=== PATIENT | female | born 1940 | race Caucasian/White ===

== ENCOUNTER 2017-09-05 13:02 | Emergency (ER) | payer OTHER ==
[~2017-09-05] VITALS: Ht 152.4 cm; Wt 68.2 kg
[~2017-09-05 13:02] MED LIST: A20IH1 IH; ACET-2902 PO; ADV500 IH; ALBU8HFA4 IH; AMLO-511 PO; ASPI-1182 PO; ATOR20TA86 PO; AUD NEB; BISA10S PR; CEFO1I IV; DICL2100G TP; DSS100 PO; FLUT16H NASAL; GUAIFCF5L PO; HEPA500018 SQ; INSNOV SQ; IPRNEB NEB; MAGOX PO; METF500T4 PO; MOM30 PO; MULT-1192 PO; NITR.4 SL; OMEP20 PO; ONDA4 IVP; PERCT PO; UMEC62.5 IH
[2017-09-05] MEDS ORDERED: KETOROLAC TROMETHAMINE 30 MG/ML VIAL IVP ONE (13:15)
[2017-09-05] MEDS ORDERED: SODIUM CHLORIDE 0.9% 1,000 ML IV ONE (13:15)
[2017-09-05] MEDS ORDERED: UMEC62.5 IH (13:19)
[2017-09-05] MEDS ORDERED: AMLO-511 PO (13:19)
[2017-09-05] MEDS ORDERED: ALBU8HFA4 IH (13:19)
[2017-09-05] MEDS ORDERED: FLUT16H NASAL (13:19)
[2017-09-05] MEDS ORDERED: OMEP20 PO (13:19)
[2017-09-05] MEDS ORDERED: ATOR20TA86 PO ×2 (13:19)
[2017-09-05] MEDS ORDERED: ADV500 IH (13:19)
[2017-09-05] MEDS ORDERED: METF500T4 PO (13:19)
[2017-09-05] MEDS ORDERED: ASPI-989 PO (13:19)
[2017-09-05] MEDS ORDERED: LACT30L PO (13:19)
[2017-09-05] MEDS ORDERED: AUD NEB (13:19)
[2017-09-05 13:23] LABS: GLUCOSE,POINT OF CARE 112 MG/DL (70-110)
[2017-09-05 13:54] LABS: BASOPHILS % (AUTO) 0.6 % (0.0-2.0); EOSINOPHILS % (AUTO) 1.6 % (1.0-6.0); HEMATOCRIT 33.3 % (36-46); HEMOGLOBIN 10.9 g/dL (12.0-16.0); LYMPHOCYTES # (AUTO) 1.1 K/uL (1.0-4.8); LYMPHOCYTES % (AUTO) 13.1 % (22.0-44.0); MEAN CORPUSCULAR HEMOGLOBIN 28.6 pg (26.0-34.0); MEAN CORPUSCULAR HGB CONC 32.8 G/dL (31.0-37.0); MEAN CORPUSCULAR VOLUME 87 fL (80-100); MONOCYTES # (AUTO) 0.7 K/uL (0.1-1.0); MONOCYTES % (AUTO) 7.7 % (2.0-9.0); NEUTROPHILS # (AUTO) 6.7 K/uL (1.8-7.7); PLATELET COUNT (AUTO) 266 K/uL (150-450); RED BLOOD CELL COUNT(AUTO) 3.81 MIL/uL (4.00-5.20); RED CELL DISTRIBUTION WIDTH 14.6 % (11.5-14.5); WHITE BLOOD COUNT (AUTO) 8.7 K/uL (4.5-11.0)
[2017-09-05 14:07] LABS: CALCIUM, TOTAL 8.9 mg/dL (8.8-10.5); CREATININE 1.16 mg/dL (0.60-1.30); POTASSIUM 4.6 mmol/L (3.5-5.1)
[2017-09-05 14:12] LABS: ALBUMIN 3.8 g/dL (3.4-5.0); BILIRUBIN,TOTAL 0.7 mg/dL (0.1-1.0); TOTAL PROTEIN, SERUM 7.3 g/dL (6.4-8.2)
[2017-09-05 14:41] LABS: APPEARANCE,URINE CLOUDY (CLEAR); GLUCOSE, URINE (UA) NEGATIVE (NEGATIVE); KETONES,URINE NEGATIVE (NEGATIVE); LEUKOCYTE ESTERASE ,URINE SMALL (NEGATIVE); OCCULT BLOOD,URINE NEGATIVE (NEGATIVE); PH,URINE 5.5 (5.0-8.0); PROTEIN,URINE NEGATIVE (NEGATIVE)
[2017-09-05 14:43] LABS: ADD UA MICROSCOPIC YES
[2017-09-05 14:47] LABS: RBC,URINE 0-2 /HPF (0-2)
[2017-09-05 14:48] LABS: SQUAMOUS EPITHELIAL CELL,UR Many /LPF (None Seen)
[2017-09-05] MEDS ORDERED: CefTRIAXone 1 GM/DEXTROSE 50 ML IV ONE (15:00)
[2017-09-05 15:45] VITALS: BP 137/51
== END 2017-09-05 16:26 | disposition home or self-care (01) ==
LOC: EMS 13:05
DX: S00.03XA Contusion of scalp, initial encounter (principal); S13.9XXA Sprain of joints and ligaments of unspecified parts of neck, initial encounter; S40.021A Contusion of right upper arm, initial encounter; S80.811A Abrasion, right lower leg, initial encounter; R42 Dizziness and giddiness; M19.90 Unspecified osteoarthritis, unspecified site; J44.9 Chronic obstructive pulmonary disease, unspecified; E11.9 Type 2 diabetes mellitus without complications; I10 Essential (primary) hypertension; E05.90 Thyrotoxicosis, unspecified without thyrotoxic crisis or storm; K21.9 Gastro-esophageal reflux disease without esophagitis; W06.XXXA Fall from bed, initial encounter; Y93.89 Activity, other specified; Y92.009 Unspecified place in unspecified non-institutional (private) residence as the place of occurrence of the external cause; Y99.8 Other external cause status
CPT/HCPCS: 36415; 70450; 72125; 73080; 80053; 81001; 82962; 84484; 85025; 87077; 87086; 87186; 93005; 96361; 96365; 96375; 99285; J0696; J1885; J7030

== ENCOUNTER 2018-03-02 12:10 | Inpatient (IN) | payer OTHER ==
[~2018-03-02] VITALS: Ht 149.9 cm; Wt 63.0 kg
[~2018-03-02 12:10] MED LIST changes: -A20IH1 IH; -BISA10S PR; -CEFO1I IV; -DICL2100G TP; -DSS100 PO; -FLUT16H NASAL; -GUAIFCF5L PO; -HEPA500018 SQ; -INSNOV SQ; -IPRNEB NEB; -MAGOX PO; -MOM30 PO; -NITR.4 SL; -ONDA4 IVP; -PERCT PO
[2018-03-02 12:23] LABS: GLUCOSE,POINT OF CARE 139 MG/DL (70-110)
[2018-03-02] MEDS ORDERED: ASPIRIN 81 MG CHEWABLE TABLET PO ONE (12:30)
[2018-03-02] MEDS ORDERED: ALBUTEROL SULFATE 5 MG/ML 20 ML NEB SOLN [BULK] NEB ONE (12:30)
[2018-03-02] MEDS ORDERED: MethylPREDNISolone SOD SUCC 125 MG/2 ML VIAL IVP ONE (12:30)
[2018-03-02] MEDS ORDERED: IPRATROPIUM BROMIDE 0.5 MG/2.5 ML NEB SOLUTION NEB ONE (12:30)
[2018-03-02 12:47] LABS: BASOPHILS % (AUTO) 0.2 % (0.0-2.0); EOSINOPHILS % (AUTO) 0.1 % (1.0-6.0); HEMATOCRIT 35.9 % (36-46); HEMOGLOBIN 11.8 g/dL (12.0-16.0); LYMPHOCYTES # (AUTO) 0.3 K/uL (1.0-4.8); LYMPHOCYTES % (AUTO) 3.3 % (22.0-44.0); MEAN CORPUSCULAR HEMOGLOBIN 29.4 pg (26.0-34.0); MEAN CORPUSCULAR VOLUME 89 fL (80-100); MONOCYTES # (AUTO) 0.1 K/uL (0.1-1.0); MONOCYTES % (AUTO) 1.3 % (2.0-9.0); NEUTROPHILS # (AUTO) 9.9 K/uL (1.8-7.7); PLATELET COUNT (AUTO) 355 K/uL (150-450); RED BLOOD CELL COUNT(AUTO) 4.03 MIL/uL (4.00-5.20); RED CELL DISTRIBUTION WIDTH 15.5 % (11.5-14.5)
[2018-03-02 12:48] LABS: NEUTROPHILS % (AUTO) 95.1 % (40.0-70.0)
[2018-03-02 13:03] LABS: ANION GAP 7 mmol/L (8-16); CALCIUM, TOTAL 9.2 mg/dL (8.8-10.5); CARBON DIOXIDE 29 mmol/L (22-29); CHLORIDE 102 mmol/L (98-107); CREATININE 1.46 mg/dL (0.60-1.30); GLOMERULAR FILTR. RATE CALC 35 mL/min (>60); GLUCOSE,RANDOM 129 mg/dL (70-110); POTASSIUM 5.5 mmol/L (3.5-5.1); SODIUM SERUM 138 mmol/L (136-145); UREA NITROGEN, BLOOD 37 mg/dL (7-18)
[2018-03-02 13:05] LABS: B-TYPE NATRIURETIC PEPTIDE 48 pg/mL (0-100)
[2018-03-02 13:07] LABS: ALANINE AMINOTRANSFERASE 29 U/L (12-78); ALKALINE PHOSPHATASE 33 U/L (46-116); ASPARTATE AMINOTRANSFERASE 21 U/L (15-37); BILIRUBIN,TOTAL 0.9 mg/dL (0.1-1.0); CREATINE KINASE, TOTAL 46 U/L (26-192); TOTAL PROTEIN, SERUM 6.6 g/dL (6.4-8.2)
[2018-03-02] MEDS ORDERED: ACETAMINOPHEN 325 MG TABLET PO PRN (14:00)
[2018-03-02] MEDS ORDERED: ONDANSETRON HCL 4 MG/2 ML VIAL IVP PRN (14:00)
[2018-03-02] MEDS ORDERED: MAGNESIUM HYDROXIDE SUSPENSION 30 ML UDCUP PO PRN (14:00)
[2018-03-02] MEDS ORDERED: DEXTROSE 50%-WATER 25 GM/50 ML SYRINGE IVP PRN (14:00)
[2018-03-02] MEDS ORDERED: ALBUTEROL SULFATE 2.5 MG/0.5 ML NEB SOLUTION NEB PRN (14:00)
[2018-03-02] MEDS ORDERED: IPRATROPIUM BROMIDE 0.5 MG/2.5 ML NEB SOLUTION NEB PRN (14:00)
[2018-03-02] MEDS ORDERED: ALBUTEROL SULFATE 2.5 MG/0.5 ML NEB SOLUTION NEB SCH (15:00)
[2018-03-02] MEDS ORDERED: IPRATROPIUM BROMIDE 0.5 MG/2.5 ML NEB SOLUTION NEB SCH (15:00)
[2018-03-02] MEDS: HEPARIN SODIUM,PORCINE 5,000 UNITS/ML VIAL SQ SCH ×2 (15:09→22:09)
[2018-03-02] MEDS: ACETAMINOPHEN 325 MG TABLET PO PRN ×2 (15:09→22:09)
[2018-03-02 15:33] LABS: GLUCOSE,POINT OF CARE 242 MG/DL (70-110)
[2018-03-02] MEDS: MONTELUKAST SODIUM 10 MG TABLET PO SCH (16:18)
[2018-03-02] MEDS: AmLODIPine BESYLATE 5 MG TABLET PO SCH (16:18)
[2018-03-02] MEDS: MULTIVITAMINS WITH MINERALS, THERAPEUTIC TABLET PO SCH (16:18)
[2018-03-02 17:43] VITALS: BP 128/43
[2018-03-02] MEDS ORDERED: PRED10 PO (17:49)
[2018-03-02] MEDS ORDERED: LACT30L PO (17:49)
[2018-03-02] MEDS ORDERED: SULF1TAB3 PO (17:49)
[2018-03-02] MEDS ORDERED: PRED20 PO (17:53)
[2018-03-02] MEDS ORDERED: ASPI-891 PO (17:53)
[2018-03-02] MEDS: MethylPREDNISolone SOD SUCC 125 MG/2 ML VIAL IVP SCH ×2 (17:56→22:09)
[2018-03-02] MEDS: INSULIN LISPRO 100 UNITS/ML SQ PRN ×2 (17:57→20:30)
[2018-03-02 18:37] LABS: GLUCOMETER DEV NAME(LOC) 5N 2S; GLUCOSE,POINT OF CARE 253 MG/DL (70-110)
[2018-03-02 19:47] VITALS: BP 132/48
[2018-03-02] MEDS: DOCUSATE SODIUM 100 MG CAPSULE PO SCH (20:27)
[2018-03-02 23:55] VITALS: BP 128/76
[2018-03-03] MEDS: MethylPREDNISolone SOD SUCC 125 MG/2 ML VIAL IVP SCH ×2 (05:05→11:59)
[2018-03-03] MEDS: INSULIN LISPRO 100 UNITS/ML SQ PRN ×4 (05:11→21:54)
[2018-03-03 05:14] VITALS: BP 142/54
[2018-03-03 07:54] VITALS: BP 160/61
[2018-03-03] MEDS: AmLODIPine BESYLATE 5 MG TABLET PO SCH (08:34)
[2018-03-03] MEDS: MULTIVITAMINS WITH MINERALS, THERAPEUTIC TABLET PO SCH (08:34)
[2018-03-03] MEDS: ASPIRIN 81 MG CHEWABLE TABLET PO SCH (08:34)
[2018-03-03] MEDS: PANTOPRAZOLE SODIUM 40 MG DR TABLET PO SCH (08:34)
[2018-03-03] MEDS: MONTELUKAST SODIUM 10 MG TABLET PO SCH (08:34)
[2018-03-03] MEDS: DOCUSATE SODIUM 100 MG CAPSULE PO SCH ×2 (08:34→20:27)
[2018-03-03] MEDS: ATORVASTATIN CALCIUM 20 MG TABLET PO SCH (08:34)
[2018-03-03] MEDS: HEPARIN SODIUM,PORCINE 5,000 UNITS/ML VIAL SQ SCH ×3 (08:35→23:31)
[2018-03-03] MEDS ORDERED: ATORVASTATIN CALCIUM 20 MG TABLET PO SCH (09:00)
[2018-03-03 11:25] VITALS: BP 150/73
[2018-03-03] MEDS: CHOLECALCIFEROL (VIT D3) 1,000 UNITS TABLET PO SCH (14:36)
[2018-03-03] MEDS: PredniSONE 20 MG TABLET PO SCH (14:36)
[2018-03-03 14:37] LABS: BASOPHILS % (AUTO) 0.1 % (0.0-2.0); EOSINOPHILS % (AUTO) 0 % (1.0-6.0); HEMATOCRIT 35.4 % (36-46); HEMOGLOBIN 11.3 g/dL (12.0-16.0); LYMPHOCYTES # (AUTO) 0.3 K/uL (1.0-4.8); LYMPHOCYTES % (AUTO) 1.8 % (22.0-44.0); MEAN CORPUSCULAR HEMOGLOBIN 28.8 pg (26.0-34.0); MEAN CORPUSCULAR VOLUME 90 fL (80-100); MONOCYTES # (AUTO) 0.3 K/uL (0.1-1.0); MONOCYTES % (AUTO) 1.5 % (2.0-9.0); NEUTROPHILS # (AUTO) 18.6 K/uL (1.8-7.7); PLATELET COUNT (AUTO) 338 K/uL (150-450); RED BLOOD CELL COUNT(AUTO) 3.94 MIL/uL (4.00-5.20); RED CELL DISTRIBUTION WIDTH 15.6 % (11.5-14.5)
[2018-03-03 14:40] LABS: NEUTROPHILS % (AUTO) 96.6 % (40.0-70.0)
[2018-03-03 14:43] LABS: CREATININE 1.39 mg/dL (0.60-1.30); POTASSIUM 5.4 mmol/L (3.5-5.1)
[2018-03-03 15:11] VITALS: BP 140/74
[2018-03-03 18:40] VITALS: BP 144/57
[2018-03-03] MEDS ORDERED: 0.9% SODIUM CHLORIDE 5 ML NEB SOLUTION NEB ONE (21:03)
[2018-03-03 23:55] VITALS: BP 134/52
[2018-03-04 01:18] LABS: GLUCOMETER DEV NAME(LOC) 6N 2D; GLUCOSE,POINT OF CARE 219 MG/DL (70-110)
[2018-03-04 04:31] VITALS: BP 150/63
[2018-03-04 06:25] LABS: CREATININE 1.01 mg/dL (0.60-1.30); POTASSIUM 4.8 mmol/L (3.5-5.1)
[2018-03-04 07:36] VITALS: BP 153/70
[2018-03-04] MEDS: HEPARIN SODIUM,PORCINE 5,000 UNITS/ML VIAL SQ SCH (08:26)
[2018-03-04] MEDS: MONTELUKAST SODIUM 10 MG TABLET PO SCH (08:27)
[2018-03-04] MEDS: ATORVASTATIN CALCIUM 20 MG TABLET PO SCH (08:28)
[2018-03-04] MEDS: AmLODIPine BESYLATE 5 MG TABLET PO SCH (08:28)
[2018-03-04] MEDS: CHOLECALCIFEROL (VIT D3) 1,000 UNITS TABLET PO SCH (08:28)
[2018-03-04] MEDS: MULTIVITAMINS WITH MINERALS, THERAPEUTIC TABLET PO SCH (08:28)
[2018-03-04] MEDS: PANTOPRAZOLE SODIUM 40 MG DR TABLET PO SCH (08:29)
[2018-03-04] MEDS: ASPIRIN 81 MG CHEWABLE TABLET PO SCH (08:29)
[2018-03-04] MEDS: PredniSONE 20 MG TABLET PO SCH (08:29)
[2018-03-04] MEDS: DOCUSATE SODIUM 100 MG CAPSULE PO SCH (08:57)
[2018-03-04 11:43] LABS: GLUCOMETER DEV NAME(LOC) 6N 1E; GLUCOSE,POINT OF CARE 134 MG/DL (70-110)
[2018-03-04] MEDS: INSULIN LISPRO 100 UNITS/ML SQ PRN (11:59)
[2018-03-04 12:14] VITALS: BP 153/71
[2018-03-04 12:43] LABS: GLUCOMETER DEV NAME(LOC) 5N 2S; GLUCOSE,POINT OF CARE 206 MG/DL (70-110)
[2018-03-04 12:43] LABS: GLUCOMETER DEV NAME(LOC) 5N 2S; GLUCOSE,POINT OF CARE 108 MG/DL (70-110)
[2018-03-04 12:43] LABS: GLUCOMETER DEV NAME(LOC) 5N 2S; GLUCOSE,POINT OF CARE 161 MG/DL (70-110)
[2018-03-04 12:43] LABS: GLUCOMETER DEV NAME(LOC) 5N 2S; GLUCOSE,POINT OF CARE 169 MG/DL (70-110)
[2018-03-04 14:13] LABS: GLUCOMETER DEV NAME(LOC) 6N 2D; GLUCOSE,POINT OF CARE 150 MG/DL (70-110)
== END 2018-03-04 14:00 | disposition home or self-care (01) | DRG 189 ==
LOC: EMS 12:11 → 5N 17:21 → EMS 17:32 → 6N 03-03 18:25
PROVIDERS: ADMIT Internal Medicine; ATTEND Internal Medicine
DX: J96.21 Acute and chronic respiratory failure with hypoxia (principal); E11.51 Type 2 diabetes mellitus with diabetic peripheral angiopathy without gangrene; Z99.81 Dependence on supplemental oxygen; J44.1 Chronic obstructive pulmonary disease with (acute) exacerbation; E11.9 Type 2 diabetes mellitus without complications; E05.90 Thyrotoxicosis, unspecified without thyrotoxic crisis or storm; E55.9 Vitamin D deficiency, unspecified; M19.90 Unspecified osteoarthritis, unspecified site; I10 Essential (primary) hypertension; F41.1 Generalized anxiety disorder; K21.9 Gastro-esophageal reflux disease without esophagitis; Z82.49 Family history of ischemic heart disease and other diseases of the circulatory system; Z87.891 Personal history of nicotine dependence; Z90.710 Acquired absence of both cervix and uterus; Z88.0 Allergy status to penicillin; Z79.899 Other long term (current) drug therapy
CPT/HCPCS: 82306; 82962; 93005; 94640; 94644; J1644; J2930

== ENCOUNTER 2018-04-13 20:38 | Inpatient (IN) | payer OTHER ==
[~2018-04-13] VITALS: Ht 152.4 cm; Wt 68.2 kg
[~2018-04-13 20:38] MED LIST changes: -ASPI-1182 PO; +ASPI-891 PO; -METF500T4 PO; +METF500T6 PO; +PRED10 PO; +PRED20 PO; +PRED5 PO; -UMEC62.5 IH
[2018-04-13 21:02] LABS: GLUCOSE,POINT OF CARE 114 MG/DL (70-110)
[2018-04-13 21:27] LABS: BASOPHILS % (AUTO) 1.3 % (0.0-2.0); HEMOGLOBIN 10.7 g/dL (12.0-16.0); LYMPHOCYTES # (AUTO) 1.3 K/uL (1.0-4.8); LYMPHOCYTES % (AUTO) 21.8 % (22.0-44.0); MEAN CORPUSCULAR HEMOGLOBIN 29.3 pg (26.0-34.0); MEAN CORPUSCULAR HGB CONC 33.4 G/dL (31.0-37.0); MEAN CORPUSCULAR VOLUME 88 fL (80-100); MONOCYTES # (AUTO) 0.6 K/uL (0.1-1.0); NEUTROPHILS # (AUTO) 3.7 K/uL (1.8-7.7); NEUTROPHILS % (AUTO) 63.9 % (40.0-70.0); PLATELET COUNT (AUTO) 273 K/uL (150-450); RED BLOOD CELL COUNT(AUTO) 3.64 MIL/uL (4.00-5.20); RED CELL DISTRIBUTION WIDTH 14.5 % (11.5-14.5)
[2018-04-13 21:37] LABS: INR 0.9 (0.9-1.1); PROTHROMBIN TIME 9.8 SEC (9.4-11.6)
[2018-04-13 21:38] LABS: ANION GAP 6 mmol/L (8-16); CALCIUM, TOTAL 9.1 mg/dL (8.8-10.5); CARBON DIOXIDE 30 mmol/L (22-29); CHLORIDE 103 mmol/L (98-107); CREATININE 0.83 mg/dL (0.60-1.30); GLOMERULAR FILTR. RATE CALC > 60 mL/min (>60); GLUCOSE,RANDOM 119 mg/dL (70-110); POTASSIUM 4.7 mmol/L (3.5-5.1); SODIUM SERUM 139 mmol/L (136-145); UREA NITROGEN, BLOOD 21 mg/dL (7-18)
[2018-04-13 21:56] LABS: B-TYPE NATRIURETIC PEPTIDE 58 pg/mL (0-100)
[2018-04-13 22:02] LABS: ALANINE AMINOTRANSFERASE 32 U/L (12-78); ALBUMIN 3.4 g/dL (3.4-5.0); ALKALINE PHOSPHATASE 45 U/L (46-116); ASPARTATE AMINOTRANSFERASE 26 U/L (15-37); BILIRUBIN,TOTAL 0.8 mg/dL (0.1-1.0); CREATINE KINASE MB 1.6 ng/mL (0-5); CREATINE KINASE, TOTAL 86 U/L (26-192); TOTAL PROTEIN, SERUM 6.5 g/dL (6.4-8.2)
[2018-04-13] MEDS ORDERED: MethylPREDNISolone SOD SUCC 125 MG/2 ML VIAL IVP ONE (22:30)
[2018-04-13] MEDS ORDERED: NITROGLYCERIN 2% (1 GM=INCH) PACKET TP ONE (22:30)
[2018-04-13] MEDS ORDERED: ASPIRIN 325 MG TABLET PO ONE (22:30)
[2018-04-13] MEDS ORDERED: IPRATROPIUM BROMIDE 0.5 MG/2.5 ML NEB SOLUTION NEB ONE (22:30)
[2018-04-13] MEDS ORDERED: ALBUTEROL SULFATE 2.5 MG/0.5 ML NEB SOLUTION NEB ONE (22:30)
[2018-04-13] MEDS ORDERED: ALBUTEROL SULFATE 2.5 MG/0.5 ML NEB SOLUTION NEB PRN (23:00)
[2018-04-13] MEDS ORDERED: IPRATROPIUM BROMIDE 0.5 MG/2.5 ML NEB SOLUTION NEB SCH (23:00)
[2018-04-13] MEDS ORDERED: 0.9% SODIUM CHLORIDE 10 ML SYRINGE IVP PRN (23:00)
[2018-04-13] MEDS ORDERED: ACETAMINOPHEN 325 MG TABLET PO PRN (23:00)
[2018-04-13] MEDS ORDERED: IPRATROPIUM BROMIDE 0.5 MG/2.5 ML NEB SOLUTION NEB PRN (23:00)
[2018-04-13] MEDS ORDERED: ALBUTEROL SULFATE 2.5 MG/0.5 ML NEB SOLUTION NEB SCH (23:00)
[2018-04-13] MEDS ORDERED: ONDANSETRON HCL 4 MG/2 ML VIAL IVP PRN (23:00)
[2018-04-13] MEDS ORDERED: CefTRIAXone SODIUM 1 GM in DEXTROSE 5%-WATER 10 ML IV ONE (23:00)
[2018-04-13] MEDS: OXYGEN THERAPY IH SCH (23:07)
[2018-04-14] VITALS (7 sets, daily range): BP systolic 125–147; BP diastolic 59–93
[2018-04-14] MEDS ORDERED: ZOLPIDEM TARTRATE 5 MG TABLET PO PRN (00:15)
[2018-04-14] MEDS ORDERED: ONDANSETRON HCL 4 MG/2 ML VIAL IVP PRN (00:15)
[2018-04-14] MEDS ORDERED: IPRATROPIUM BROMIDE 0.5 MG/2.5 ML NEB SOLUTION NEB PRN (00:15)
[2018-04-14] MEDS ORDERED: GuaiFENesin/D-METHORPHAN/PHENYLEPH 5 ML LIQUID ORAL.SYG PO PRN (00:15)
[2018-04-14] MEDS ORDERED: BENZOCAINE/MENTHOL LOZENGE MM PRN (00:15)
[2018-04-14] MEDS ORDERED: BISACODYL 10 MG RECTAL RECTAL SUPPOSITORY PR PRN (00:15)
[2018-04-14] MEDS ORDERED: MAGNESIUM HYDROXIDE SUSPENSION 30 ML UDCUP PO PRN (00:15)
[2018-04-14] MEDS ORDERED: ALBUTEROL SULFATE 2.5 MG/0.5 ML NEB SOLUTION NEB PRN (00:15)
[2018-04-14] MEDS ORDERED: SODIUM CHLORIDE 0.9% 250 ML IV ONE (01:11)
[2018-04-14] MEDS: AZITHROMYCIN 500 MG/NS 250 ML IV SCH (02:09)
[2018-04-14] MEDS: ACETAMINOPHEN 325 MG TABLET PO PRN ×2 (02:49→20:13)
[2018-04-14] MEDS: ALBUTEROL SULFATE 2.5 MG/0.5 ML NEB SOLUTION NEB PRN ×2 (05:46→17:29)
[2018-04-14] MEDS: IPRATROPIUM BROMIDE 0.5 MG/2.5 ML NEB SOLUTION NEB PRN ×2 (05:46→17:29)
[2018-04-14] MEDS: HEPARIN SODIUM,PORCINE 5,000 UNITS/ML VIAL SQ SCH ×2 (08:00→20:06)
[2018-04-14] MEDS: PANTOPRAZOLE SODIUM 40 MG DR TABLET PO SCH (08:00)
[2018-04-14] MEDS: MethylPREDNISolone SOD SUCC 125 MG/2 ML VIAL IVP SCH ×4 (08:00→23:38)
[2018-04-14] MEDS: OXYGEN THERAPY IH SCH ×2 (08:00→20:13)
[2018-04-14] MEDS ORDERED: DEXTROSE 50%-WATER 25 GM/50 ML SYRINGE IVP PRN (11:15)
[2018-04-14] MEDS: INSULIN LISPRO 100 UNITS/ML SQ PRN ×3 (12:33→20:11)
[2018-04-14] MEDS: OxyCODONE HCL/ACETAMINOPHEN 5-325 MG TABLET PO PRN (23:39)
[2018-04-15 01:03] LABS: GLUCOMETER DEV NAME(LOC) 5S 1M; GLUCOSE,POINT OF CARE 229 MG/DL (70-110)
[2018-04-15 01:28] LABS: GLUCOMETER DEV NAME(LOC) 5N 2S; GLUCOSE,POINT OF CARE 171 MG/DL (70-110)
[2018-04-15 01:28] LABS: GLUCOMETER DEV NAME(LOC) 5N 2S; GLUCOSE,POINT OF CARE 175 MG/DL (70-110)
[2018-04-15 01:28] LABS: GLUCOMETER DEV NAME(LOC) 5N 2S; GLUCOSE,POINT OF CARE 148 MG/DL (70-110)
[2018-04-15] MEDS: AZITHROMYCIN 500 MG/NS 250 ML IV SCH (02:06)
[2018-04-15 04:28] VITALS: BP 125/57
[2018-04-15] MEDS: INSULIN LISPRO 100 UNITS/ML SQ PRN ×4 (06:19→20:42)
[2018-04-15 06:41] LABS: BASOPHILS % (AUTO) 0.1 % (0.0-2.0); EOSINOPHILS % (AUTO) 0 % (1.0-6.0); HEMATOCRIT 31.2 % (36-46); HEMOGLOBIN 10.9 g/dL (12.0-16.0); LYMPHOCYTES # (AUTO) 0.5 K/uL (1.0-4.8); LYMPHOCYTES % (AUTO) 4.5 % (22.0-44.0); MEAN CORPUSCULAR HEMOGLOBIN 30.2 pg (26.0-34.0); MEAN CORPUSCULAR VOLUME 86 fL (80-100); MONOCYTES # (AUTO) 0.2 K/uL (0.1-1.0); MONOCYTES % (AUTO) 1.7 % (2.0-9.0); NEUTROPHILS # (AUTO) 9.9 K/uL (1.8-7.7); PLATELET COUNT (AUTO) 260 K/uL (150-450); RED BLOOD CELL COUNT(AUTO) 3.61 MIL/uL (4.00-5.20); RED CELL DISTRIBUTION WIDTH 14.2 % (11.5-14.5)
[2018-04-15 06:55] LABS: NEUTROPHILS % (AUTO) 93.7 % (40.0-70.0)
[2018-04-15 07:18] VITALS: BP 145/71
[2018-04-15] MEDS: IPRATROPIUM BROMIDE 0.5 MG/2.5 ML NEB SOLUTION NEB PRN (07:44)
[2018-04-15] MEDS: ALBUTEROL SULFATE 2.5 MG/0.5 ML NEB SOLUTION NEB PRN (07:44)
[2018-04-15] MEDS: OXYGEN THERAPY IH SCH ×2 (07:45→20:17)
[2018-04-15 07:48] LABS: GLUCOMETER DEV NAME(LOC) 5S 1M; GLUCOSE,POINT OF CARE 183 MG/DL (70-110)
[2018-04-15] MEDS: HEPARIN SODIUM,PORCINE 5,000 UNITS/ML VIAL SQ SCH ×2 (08:02→20:41)
[2018-04-15] MEDS: PANTOPRAZOLE SODIUM 40 MG DR TABLET PO SCH (08:03)
[2018-04-15] MEDS: MethylPREDNISolone SOD SUCC 125 MG/2 ML VIAL IVP SCH ×3 (08:03→23:36)
[2018-04-15 08:04] LABS: ALANINE AMINOTRANSFERASE 31 U/L (12-78); ALBUMIN 3.2 g/dL (3.4-5.0); ALKALINE PHOSPHATASE 30 U/L (46-116); ANION GAP 6 mmol/L (8-16); ASPARTATE AMINOTRANSFERASE 19 U/L (15-37); BILIRUBIN,TOTAL 0.5 mg/dL (0.1-1.0); CALCIUM, TOTAL 8.5 mg/dL (8.8-10.5); CARBON DIOXIDE 29 mmol/L (22-29); CHLORIDE 103 mmol/L (98-107); CHOL/HDL RATIO 2.3 (3.9-5.7); CHOLESTEROL 134 mg/dL (131-200); CREATININE 0.78 mg/dL (0.60-1.30); GLOMERULAR FILTR. RATE CALC > 60 mL/min (>60); GLUCOSE,RANDOM 174 mg/dL (70-110); HDL CHOLESTEROL 58 mg/dL (40-60); LDL CHOL (CALC.) 52 mg/dL (0-130); PHOSPHORUS 3.4 mg/dL (2.5-4.9); POTASSIUM 4.2 mmol/L (3.5-5.1); SODIUM SERUM 138 mmol/L (136-145); THYROID STIMULATING HORMONE 0.15 uIU/mL (0.36-3.74); TOTAL PROTEIN, SERUM 6.1 g/dL (6.4-8.2); TRIGLYCERIDES 122 mg/dL (15-150); UREA NITROGEN, BLOOD 20 mg/dL (7-18)
[2018-04-15] MEDS: IPRATROPIUM BROMIDE 0.5 MG/2.5 ML NEB SOLUTION NEB SCH ×3 (11:00→20:17)
[2018-04-15] MEDS: ALBUTEROL SULFATE 2.5 MG/0.5 ML NEB SOLUTION NEB SCH ×3 (11:00→20:17)
[2018-04-15 11:14] VITALS: BP 135/56
[2018-04-15 15:04] VITALS: BP 138/59
[2018-04-15 19:49] VITALS: BP 131/56
[2018-04-15] MEDS: OxyCODONE HCL/ACETAMINOPHEN 5-325 MG TABLET PO PRN (20:41)
[2018-04-15 22:23] LABS: GLUCOMETER DEV NAME(LOC) 5S 2Q; GLUCOSE,POINT OF CARE 349 MG/DL (70-110)
[2018-04-15 22:23] LABS: GLUCOMETER DEV NAME(LOC) 5S 1M; GLUCOSE,POINT OF CARE 183 MG/DL (70-110)
[2018-04-15 22:23] LABS: GLUCOMETER DEV NAME(LOC) 5S 1M; GLUCOSE,POINT OF CARE 196 MG/DL (70-110)
[2018-04-16 00:07] VITALS: BP 142/62
[2018-04-16] MEDS: IPRATROPIUM BROMIDE 0.5 MG/2.5 ML NEB SOLUTION NEB SCH ×3 (02:23→14:16)
[2018-04-16] MEDS: ALBUTEROL SULFATE 2.5 MG/0.5 ML NEB SOLUTION NEB SCH ×3 (02:23→14:16)
[2018-04-16] MEDS: AZITHROMYCIN 500 MG/NS 250 ML IV SCH (02:41)
[2018-04-16 04:27] VITALS: BP 140/66
[2018-04-16] MEDS: INSULIN LISPRO 100 UNITS/ML SQ PRN ×2 (05:31→11:46)
[2018-04-16 07:17] VITALS: BP 144/74
[2018-04-16] MEDS: OXYGEN THERAPY IH SCH (09:12)
[2018-04-16] MEDS: PANTOPRAZOLE SODIUM 40 MG DR TABLET PO SCH (09:18)
[2018-04-16] MEDS: HEPARIN SODIUM,PORCINE 5,000 UNITS/ML VIAL SQ SCH (09:18)
[2018-04-16] MEDS ORDERED: PredniSONE 20 MG TABLET PO ONE ×2 (09:30→15:00)
[2018-04-16 10:13] LABS: GLUCOMETER DEV NAME(LOC) 5S 1M; GLUCOSE,POINT OF CARE 213 MG/DL (70-110)
[2018-04-16 11:42] VITALS: BP 145/77
[2018-04-16 12:08] LABS: GLUCOMETER DEV NAME(LOC) 5S 2Q; GLUCOSE,POINT OF CARE 238 MG/DL (70-110)
[2018-04-16 15:08] VITALS: BP 164/78
[2018-04-16] MEDS: ACETAMINOPHEN 325 MG TABLET PO PRN (15:21)
== END 2018-04-16 16:40 | disposition home or self-care (01) | DRG 192 ==
LOC: EMS 20:39 → 5S 22:58
PROVIDERS: ADMIT Internal Medicine; ATTEND Internal Medicine
DX: J44.1 Chronic obstructive pulmonary disease with (acute) exacerbation (principal); E11.51 Type 2 diabetes mellitus with diabetic peripheral angiopathy without gangrene; E11.65 Type 2 diabetes mellitus with hyperglycemia; E78.5 Hyperlipidemia, unspecified; M19.90 Unspecified osteoarthritis, unspecified site; K21.9 Gastro-esophageal reflux disease without esophagitis; K59.00 Constipation, unspecified; M85.80 Other specified disorders of bone density and structure, unspecified site; I10 Essential (primary) hypertension; Z90.710 Acquired absence of both cervix and uterus; Z90.49 Acquired absence of other specified parts of digestive tract; Z99.81 Dependence on supplemental oxygen; Z88.0 Allergy status to penicillin; Z79.82 Long term (current) use of aspirin; Z79.899 Other long term (current) drug therapy; Z79.52 Long term (current) use of systemic steroids; Z87.891 Personal history of nicotine dependence
CPT/HCPCS: 82306; 83605; 83735; 84100; 84443; 87040; 87081; 93005; 94640; 96374; 99285; J0456; J0696; J1644; J2930; J7050; J7060

== ENCOUNTER 2018-05-27 08:17 | Inpatient (IN) | payer OTHER ==
[~2018-05-27] VITALS: Ht 149.9 cm; Wt 67.5 kg
[~2018-05-27 08:17] MED LIST changes: -PRED10 PO; -PRED20 PO
[2018-05-27 08:39] LABS: GLUCOSE,POINT OF CARE 104 MG/DL (70-110)
[2018-05-27] MEDS ORDERED: ALBUTEROL SULFATE 5 MG/ML 20 ML NEB SOLN [BULK] NEB ONE (09:15)
[2018-05-27] MEDS ORDERED: MORPHINE SULFATE 2 MG/ML SYRINGE IVP ONE (09:15)
[2018-05-27] MEDS ORDERED: IPRATROPIUM BROMIDE 0.5 MG/2.5 ML NEB SOLUTION NEB ONE (09:15)
[2018-05-27] MEDS ORDERED: 0.9% SODIUM CHLORIDE 5 ML NEB SOLUTION NEB ONE (09:21)
[2018-05-27 09:22] LABS: BASOPHILS % (AUTO) 0.6 % (0.0-2.0); EOSINOPHILS % (AUTO) 1.7 % (1.0-6.0); HEMATOCRIT 34.2 % (36-46); HEMOGLOBIN 11.3 g/dL (12.0-16.0); LYMPHOCYTES # (AUTO) 0.9 K/uL (1.0-4.8); LYMPHOCYTES % (AUTO) 9.7 % (22.0-44.0); MEAN CORPUSCULAR HEMOGLOBIN 29.7 pg (26.0-34.0); MEAN CORPUSCULAR HGB CONC 33.1 G/dL (31.0-37.0); MEAN CORPUSCULAR VOLUME 90 fL (80-100); MONOCYTES # (AUTO) 0.7 K/uL (0.1-1.0); MONOCYTES % (AUTO) 7.1 % (2.0-9.0); NEUTROPHILS # (AUTO) 7.8 K/uL (1.8-7.7); NEUTROPHILS % (AUTO) 80.9 % (40.0-70.0); PLATELET COUNT (AUTO) 275 K/uL (150-450); RED BLOOD CELL COUNT(AUTO) 3.82 MIL/uL (4.00-5.20); RED CELL DISTRIBUTION WIDTH 15.1 % (11.5-14.5)
[2018-05-27] MEDS ORDERED: MethylPREDNISolone SOD SUCC 125 MG/2 ML VIAL IVP ONE (09:30)
[2018-05-27 09:33] LABS: INR 0.9 (0.9-1.1); PROTHROMBIN TIME 9.7 SEC (9.4-11.6)
[2018-05-27 09:34] LABS: ANION GAP -1 mmol/L (8-16); CALCIUM, TOTAL 8.9 mg/dL (8.8-10.5); CARBON DIOXIDE 35 mmol/L (22-29); CHLORIDE 103 mmol/L (98-107); CREATININE 0.86 mg/dL (0.60-1.30); GLOMERULAR FILTR. RATE CALC > 60 mL/min (>60); GLUCOSE,RANDOM 104 mg/dL (70-110); POTASSIUM 4.1 mmol/L (3.5-5.1); SODIUM SERUM 137 mmol/L (136-145); UREA NITROGEN, BLOOD 12 mg/dL (7-18)
[2018-05-27 09:40] LABS: ALANINE AMINOTRANSFERASE 26 U/L (12-78); ALBUMIN 3.4 g/dL (3.4-5.0); ALKALINE PHOSPHATASE 47 U/L (46-116); ASPARTATE AMINOTRANSFERASE 23 U/L (15-37); BILIRUBIN,TOTAL 1.5 mg/dL (0.1-1.0); CREATINE KINASE, TOTAL 66 U/L (26-192); TOTAL PROTEIN, SERUM 6.4 g/dL (6.4-8.2)
[2018-05-27 09:44] LABS: B-TYPE NATRIURETIC PEPTIDE 59 pg/mL (0-100)
[2018-05-27] MEDS ORDERED: 0.9% SODIUM CHLORIDE 10 ML SYRINGE IVP PRN (11:15)
[2018-05-27 12:13] VITALS: BP 133/64
[2018-05-27] MEDS: MethylPREDNISolone SOD SUCC 40 MG/ML VIAL IVP SCH ×3 (15:10→23:25)
[2018-05-27 15:15] VITALS: BP 130/55
[2018-05-27] MEDS: IPRATROPIUM BROMIDE 0.5 MG/2.5 ML NEB SOLUTION NEB SCH (15:26)
[2018-05-27] MEDS: ALBUTEROL SULFATE 2.5 MG/0.5 ML NEB SOLUTION NEB SCH (15:26)
[2018-05-27] MEDS: ACETAMINOPHEN 325 MG TABLET PO PRN ×2 (17:42→23:25)
[2018-05-27 19:22] VITALS: BP 142/63
[2018-05-27] MEDS: OXYGEN THERAPY IH SCH (19:52)
[2018-05-27 23:46] VITALS: BP 148/61
[2018-05-28] MEDS: ALBUTEROL SULFATE 2.5 MG/0.5 ML NEB SOLUTION NEB SCH ×4 (00:14→23:08)
[2018-05-28] MEDS: IPRATROPIUM BROMIDE 0.5 MG/2.5 ML NEB SOLUTION NEB SCH ×4 (00:15→23:08)
[2018-05-28 04:41] VITALS: BP 148/70
[2018-05-28] MEDS: MethylPREDNISolone SOD SUCC 40 MG/ML VIAL IVP SCH ×4 (06:05→23:06)
[2018-05-28 06:31] LABS: HEMOGLOBIN 10.6 g/dL (12.0-16.0); MEAN CORPUSCULAR HEMOGLOBIN 29.2 pg (26.0-34.0); MEAN CORPUSCULAR HGB CONC 33.1 G/dL (31.0-37.0); MEAN CORPUSCULAR VOLUME 88 fL (80-100); PLATELET COUNT (AUTO) 251 K/uL (150-450); RED BLOOD CELL COUNT(AUTO) 3.62 MIL/uL (4.00-5.20); RED CELL DISTRIBUTION WIDTH 14.9 % (11.5-14.5)
[2018-05-28 07:10] LABS: ALANINE AMINOTRANSFERASE 25 U/L (12-78); ALBUMIN 3.1 g/dL (3.4-5.0); ALKALINE PHOSPHATASE 43 U/L (46-116); ANION GAP 5 mmol/L (8-16); ASPARTATE AMINOTRANSFERASE 17 U/L (15-37); BILIRUBIN,TOTAL 0.7 mg/dL (0.1-1.0); CALCIUM, TOTAL 8.7 mg/dL (8.8-10.5); CARBON DIOXIDE 31 mmol/L (22-29); CHLORIDE 101 mmol/L (98-107); CREATININE 0.87 mg/dL (0.60-1.30); GLUCOSE,RANDOM 211 mg/dL (70-110); POTASSIUM 4.1 mmol/L (3.5-5.1); SODIUM SERUM 137 mmol/L (136-145); TOTAL PROTEIN, SERUM 6.2 g/dL (6.4-8.2); UREA NITROGEN, BLOOD 20 mg/dL (7-18)
[2018-05-28 07:13] VITALS: BP 147/66
[2018-05-28 07:20] LABS: GLOMERULAR FILTR. RATE CALC > 60 mL/min (>60)
[2018-05-28 07:48] LABS: BAND NEUTROPHILS % (MANUAL) 7 % (0-5); LYMPHOCYTES % (MANUAL) 4 % (22-44); SEGMENTED NEUTROPHILS % 89 % (40-70)
[2018-05-28] MEDS: OXYGEN THERAPY IH SCH ×2 (08:27→23:08)
[2018-05-28 11:16] VITALS: BP 156/69
[2018-05-28 15:42] VITALS: BP 161/77
[2018-05-28] MEDS ORDERED: MAGNESIUM HYDROXIDE SUSPENSION 30 ML UDCUP PO PRN (18:30)
[2018-05-28] MEDS ORDERED: MORPHINE SULFATE 2 MG/ML SYRINGE IVP PRN (18:30)
[2018-05-28] MEDS ORDERED: HYDROCODONE/ACETAMINOPHEN 5-325 MG TABLET PO PRN (18:30)
[2018-05-28] MEDS ORDERED: BISACODYL 10 MG RECTAL RECTAL SUPPOSITORY PR PRN (18:30)
[2018-05-28] MEDS ORDERED: ALBUTEROL SULFATE 2.5 MG/0.5 ML NEB SOLUTION NEB PRN (18:30)
[2018-05-28] MEDS ORDERED: ONDANSETRON HCL 4 MG/2 ML VIAL IVP PRN (18:30)
[2018-05-28] MEDS ORDERED: IPRATROPIUM BROMIDE 0.5 MG/2.5 ML NEB SOLUTION NEB PRN (18:30)
[2018-05-28] MEDS ORDERED: ZOLPIDEM TARTRATE 5 MG TABLET PO PRN (18:30)
[2018-05-28] MEDS: AmLODIPine BESYLATE 5 MG TABLET PO SCH (18:43)
[2018-05-28] MEDS: DOCUSATE SODIUM 100 MG CAPSULE PO SCH (19:35)
[2018-05-28 19:43] VITALS: BP 153/67
[2018-05-28] MEDS: ACETAMINOPHEN 325 MG TABLET PO PRN (23:09)
[2018-05-28] MEDS: HEPARIN SODIUM,PORCINE 5,000 UNITS/ML VIAL SQ SCH (23:27)
[2018-05-29 00:40] VITALS: BP 148/69
[2018-05-29 04:36] VITALS: BP 142/67
[2018-05-29] MEDS: MethylPREDNISolone SOD SUCC 40 MG/ML VIAL IVP SCH ×3 (06:13→17:52)
[2018-05-29 07:40] VITALS: BP 134/69
[2018-05-29] MEDS: HEPARIN SODIUM,PORCINE 5,000 UNITS/ML VIAL SQ SCH ×2 (08:00→16:00)
[2018-05-29] MEDS: OXYGEN THERAPY IH SCH ×2 (08:30→20:37)
[2018-05-29] MEDS: AmLODIPine BESYLATE 5 MG TABLET PO SCH (08:36)
[2018-05-29] MEDS: ATORVASTATIN CALCIUM 20 MG TABLET PO SCH (08:36)
[2018-05-29] MEDS: DOCUSATE SODIUM 100 MG CAPSULE PO SCH ×2 (08:36→20:37)
[2018-05-29] MEDS: PANTOPRAZOLE SODIUM 40 MG/VIAL IVP SCH (08:36)
[2018-05-29] MEDS: IPRATROPIUM BROMIDE 0.5 MG/2.5 ML NEB SOLUTION NEB SCH ×2 (09:32→16:52)
[2018-05-29] MEDS: ALBUTEROL SULFATE 2.5 MG/0.5 ML NEB SOLUTION NEB SCH ×2 (09:32→16:52)
[2018-05-29 11:04] VITALS: BP 143/67
[2018-05-29 16:05] VITALS: BP 152/71
[2018-05-29] MEDS ORDERED: GuaiFENesin [SUGAR-FREE] 200 MG/10 ML SOLUTION UDCUP PO ONE (16:30)
[2018-05-29 19:09] VITALS: BP 147/71
[2018-05-30] MEDS: IPRATROPIUM BROMIDE 0.5 MG/2.5 ML NEB SOLUTION NEB SCH ×2 (00:11→08:59)
[2018-05-30] MEDS: ALBUTEROL SULFATE 2.5 MG/0.5 ML NEB SOLUTION NEB SCH ×2 (00:11→08:59)
[2018-05-30] MEDS: ACETAMINOPHEN 325 MG TABLET PO PRN (00:17)
[2018-05-30] MEDS: MethylPREDNISolone SOD SUCC 40 MG/ML VIAL IVP SCH ×3 (00:18→12:06)
[2018-05-30] MEDS: HEPARIN SODIUM,PORCINE 5,000 UNITS/ML VIAL SQ SCH ×2 (00:18→07:41)
[2018-05-30 00:22] VITALS: BP 148/67
[2018-05-30 05:11] VITALS: BP 152/77
[2018-05-30] MEDS: AmLODIPine BESYLATE 5 MG TABLET PO SCH (07:41)
[2018-05-30] MEDS: DOCUSATE SODIUM 100 MG CAPSULE PO SCH ×2 (07:41→08:27)
[2018-05-30] MEDS: ATORVASTATIN CALCIUM 20 MG TABLET PO SCH (07:41)
[2018-05-30] MEDS: PANTOPRAZOLE SODIUM 40 MG/VIAL IVP SCH (07:41)
[2018-05-30 07:43] VITALS: BP 141/60
[2018-05-30] MEDS: OXYGEN THERAPY IH SCH (07:45)
[2018-05-30] MEDS ORDERED: PRED20 PO (11:37)
[2018-05-30] MEDS ORDERED: CIP250 PO (11:39)
[2018-05-30 12:01] VITALS: BP 144/65
== END 2018-05-30 13:50 | disposition home or self-care (01) | DRG 202 ==
LOC: EMS 08:19 → 5S 10:58
PROVIDERS: ADMIT Hospitalist; ATTEND Hospitalist
DX: J45.901 Unspecified asthma with (acute) exacerbation (principal); J44.1 Chronic obstructive pulmonary disease with (acute) exacerbation; J96.11 Chronic respiratory failure with hypoxia; I10 Essential (primary) hypertension; E78.5 Hyperlipidemia, unspecified; M19.90 Unspecified osteoarthritis, unspecified site; E05.90 Thyrotoxicosis, unspecified without thyrotoxic crisis or storm; E11.51 Type 2 diabetes mellitus with diabetic peripheral angiopathy without gangrene; K21.9 Gastro-esophageal reflux disease without esophagitis; M85.80 Other specified disorders of bone density and structure, unspecified site; Z90.710 Acquired absence of both cervix and uterus; Z90.49 Acquired absence of other specified parts of digestive tract; Z99.81 Dependence on supplemental oxygen; Z98.49 Cataract extraction status, unspecified eye; Z88.0 Allergy status to penicillin; Z79.899 Other long term (current) drug therapy; Z79.51 Long term (current) use of inhaled steroids; Z87.891 Personal history of nicotine dependence; Z82.49 Family history of ischemic heart disease and other diseases of the circulatory system
CPT/HCPCS: 93005; 94640; 94644; 96374; 96375; 99285; C9113; J1644; J2270; J2920; J2930

== ENCOUNTER 2018-08-22 06:38 | Emergency (ER) | payer OTHER ==
[~2018-08-22] VITALS: Ht 157.5 cm; Wt 61.4 kg
[~2018-08-22 06:38] MED LIST changes: -ACET-2902 PO; -ASPI-891 PO; +CIP250 PO; +METF-960 PO; -METF500T6 PO; +PRED20 PO; -PRED5 PO
[2018-08-22] MEDS ORDERED: IPRATROPIUM BROMIDE 0.5 MG/2.5 ML NEB SOLUTION NEB ONE ×2 (07:00→08:30)
[2018-08-22] MEDS ORDERED: ALBUTEROL SULFATE 2.5 MG/0.5 ML NEB SOLUTION NEB ONE (07:00)
[2018-08-22 07:25] LABS: BASOPHILS % (AUTO) 1.5 % (0.0-2.0); EOSINOPHILS % (AUTO) 3.4 % (1.0-6.0); HEMOGLOBIN 10.8 g/dL (12.0-16.0); LYMPHOCYTES # (AUTO) 1.3 K/uL (1.0-4.8); LYMPHOCYTES % (AUTO) 18.7 % (22.0-44.0); MEAN CORPUSCULAR HEMOGLOBIN 29.3 pg (26.0-34.0); MEAN CORPUSCULAR HGB CONC 32.8 G/dL (31.0-37.0); MEAN CORPUSCULAR VOLUME 89 fL (80-100); MONOCYTES # (AUTO) 0.6 K/uL (0.1-1.0); MONOCYTES % (AUTO) 8.7 % (2.0-9.0); NEUTROPHILS # (AUTO) 4.8 K/uL (1.8-7.7); NEUTROPHILS % (AUTO) 67.7 % (40.0-70.0); PLATELET COUNT (AUTO) 325 K/uL (150-450); RED BLOOD CELL COUNT(AUTO) 3.69 MIL/uL (4.00-5.20); RED CELL DISTRIBUTION WIDTH 15.2 % (11.5-14.5)
[2018-08-22 07:29] LABS: CALCIUM, TOTAL 8.8 mg/dL (8.8-10.5); CREATININE 0.97 mg/dL (0.60-1.30); POTASSIUM 4.2 mmol/L (3.5-5.1)
[2018-08-22 07:35] LABS: ALBUMIN 3.2 g/dL (3.4-5.0); TOTAL PROTEIN, SERUM 6.8 g/dL (6.4-8.2)
[2018-08-22 07:44] LABS: GLUCOSE,POINT OF CARE 109 MG/DL (70-110)
[2018-08-22] MEDS ORDERED: ALBUTEROL SULFATE 5 MG/ML 20 ML NEB SOLN [BULK] NEB ONE (08:30)
[2018-08-22] MEDS ORDERED: MethylPREDNISolone SOD SUCC 125 MG/2 ML VIAL IVP ONE (08:30)
[2018-08-22] MEDS ORDERED: 0.9% SODIUM CHLORIDE 15 ML NEB SOLUTION NEB ONE (08:32)
[2018-08-22 08:42] LABS: INFLUENZA TYPE A NEGATIVE FOR TYPE A (NEGATIVE); INFLUENZA TYPE B NEGATIVE FOR TYPE B (NEGATIVE)
[2018-08-22 10:25] VITALS: BP 144/65
[2018-08-22] MEDS ORDERED: ALBUTEROL SULFATE HFA 90 MCG/PUFF 8 GM INHALER IH ONE (10:30)
== END 2018-08-22 11:37 | disposition home or self-care (01) ==
LOC: EMS 06:39
DX: J44.1 Chronic obstructive pulmonary disease with (acute) exacerbation (principal); I10 Essential (primary) hypertension; E11.9 Type 2 diabetes mellitus without complications; K21.9 Gastro-esophageal reflux disease without esophagitis; E05.90 Thyrotoxicosis, unspecified without thyrotoxic crisis or storm; Z88.0 Allergy status to penicillin; Z87.891 Personal history of nicotine dependence
CPT/HCPCS: 36415; 71045; 80053; 82962; 83880; 84484; 85025; 87804; 93005; 94640; 94644; 96374; 99285; J2930; J3535

== ENCOUNTER 2019-01-31 10:49 | Emergency (ER) | payer OTHER ==
[~2019-01-31] VITALS: Ht 157.5 cm; Wt 60.0 kg
[2019-01-31] MEDS ORDERED: IPRNEB IH (11:02)
[2019-01-31] MEDS ORDERED: LACT30L PO (11:02)
[2019-01-31] MEDS ORDERED: MONT10TA21 PO (11:02)
[2019-01-31] MEDS ORDERED: FERR-89 PO (11:02)
[2019-01-31] MEDS ORDERED: CLOT10T PO (11:02)
[2019-01-31] MEDS ORDERED: ASPI-1182 PO (11:02)
[2019-01-31 11:03] LABS: GLUCOSE,POINT OF CARE 110 MG/DL (70-110)
[2019-01-31] MEDS ORDERED: ALBUTEROL SULFATE 2.5 MG/0.5 ML NEB SOLUTION NEB ONE (13:15)
[2019-01-31] MEDS ORDERED: MethylPREDNISolone SOD SUCC 125 MG/2 ML VIAL IVP ONE (13:15)
[2019-01-31] MEDS ORDERED: IPRATROPIUM BROMIDE 0.5 MG/2.5 ML NEB SOLUTION NEB ONE (13:15)
[2019-01-31 14:28] LABS: BASOPHILS % (AUTO) 0.7 % (0.0-2.0); EOSINOPHILS % (AUTO) 2.4 % (1.0-6.0); HEMATOCRIT 37.6 % (36-46); HEMOGLOBIN 12.2 g/dL (12.0-16.0); LYMPHOCYTES # (AUTO) 1.3 K/uL (1.0-4.8); LYMPHOCYTES % (AUTO) 16.9 % (22.0-44.0); MEAN CORPUSCULAR HEMOGLOBIN 27.9 pg (26.0-34.0); MEAN CORPUSCULAR HGB CONC 32.4 G/dL (31.0-37.0); MEAN CORPUSCULAR VOLUME 86 fL (80-100); MONOCYTES # (AUTO) 0.5 K/uL (0.1-1.0); MONOCYTES % (AUTO) 6.1 % (2.0-9.0); NEUTROPHILS # (AUTO) 5.7 K/uL (1.8-7.7); NEUTROPHILS % (AUTO) 73.9 % (40.0-70.0); PLATELET COUNT (AUTO) 257 K/uL (150-450); RED BLOOD CELL COUNT(AUTO) 4.36 MIL/uL (4.00-5.20); RED CELL DISTRIBUTION WIDTH 14.2 % (11.5-14.5)
[2019-01-31 14:42] LABS: ALANINE AMINOTRANSFERASE 24 U/L (12-78); ALBUMIN 3.3 g/dL (3.4-5.0); ALKALINE PHOSPHATASE 60 U/L (46-116); ANION GAP 5 mmol/L (8-16); ASPARTATE AMINOTRANSFERASE 21 U/L (15-37); BILIRUBIN,TOTAL 0.9 mg/dL (0.1-1.0); CARBON DIOXIDE 31 mmol/L (22-29); CHLORIDE 102 mmol/L (98-107); CREATININE 0.74 mg/dL (0.60-1.30); GLUCOSE,RANDOM 114 mg/dL (70-110); SODIUM SERUM 138 mmol/L (136-145); TOTAL PROTEIN, SERUM 6.6 g/dL (6.4-8.2); UREA NITROGEN, BLOOD 12 mg/dL (7-18)
[2019-01-31 14:43] LABS: GLOMERULAR FILTR. RATE CALC > 60 mL/min (>60)
[2019-01-31 14:44] LABS: LACTIC ACID 0.8 mmol/L (0.4-2.0)
[2019-01-31 14:54] LABS: CALCIUM, TOTAL 9.1 mg/dL (8.8-10.5)
[2019-01-31 15:11] LABS: INFLUENZA TYPE A NEGATIVE FOR TYPE A (NEGATIVE); INFLUENZA TYPE B NEGATIVE FOR TYPE B (NEGATIVE)
[2019-01-31 17:59] VITALS: BP 155/76
[2019-02-02] MEDS ORDERED: PRED20 PO (20:36)
[2019-02-02] MEDS ORDERED: AZIT250T9 PO (20:36)
== END 2019-01-31 18:01 | disposition home or self-care (01) ==
LOC: EMS 10:49
DX: J44.1 Chronic obstructive pulmonary disease with (acute) exacerbation (principal); I10 Essential (primary) hypertension; E05.91 Thyrotoxicosis, unspecified with thyrotoxic crisis or storm; Z87.891 Personal history of nicotine dependence; Z90.49 Acquired absence of other specified parts of digestive tract; Z90.710 Acquired absence of both cervix and uterus; Z88.0 Allergy status to penicillin; Z79.82 Long term (current) use of aspirin; Z79.84 Long term (current) use of oral hypoglycemic drugs; Z79.899 Other long term (current) drug therapy
CPT/HCPCS: 36415; 71045; 80053; 82962; 83605; 83880; 84484; 85025; 87040; 87205; 87804; 93005; 94640; 96374; 99285; J2930

== ENCOUNTER 2019-02-16 18:25 | Inpatient (IN) | payer OTHER ==
[~2019-02-16] VITALS: Ht 160 cm; Wt 61.5 kg
[~2019-02-16 18:25] MED LIST changes: +ASPI-1182 PO; -AUD NEB; +AZIT250T9 PO; -CIP250 PO; +CLOT10T PO; +FERR-89 PO; +IPRNEB IH; +LACT30L PO; +MONT10TA21 PO
[2019-02-16 18:39] LABS: GLUCOSE,POINT OF CARE 128 MG/DL (70-110)
[2019-02-16] MEDS ORDERED: MethylPREDNISolone SOD SUCC 125 MG/2 ML VIAL IVP ONE (19:30)
[2019-02-16] MEDS ORDERED: 0.9% SODIUM CHLORIDE 5 ML NEB SOLUTION NEB ONE ×2 (19:30→21:02)
[2019-02-16] MEDS ORDERED: ALBUTEROL SULFATE 5 MG/ML 20 ML NEB SOLN [BULK] NEB ONE (19:30)
[2019-02-16] MEDS ORDERED: IPRATROPIUM BROMIDE 0.5 MG/2.5 ML NEB SOLUTION NEB ONE ×2 (19:30→21:00)
[2019-02-16 20:19] LABS: BASOPHILS % (AUTO) 0.8 % (0.0-2.0); EOSINOPHILS % (AUTO) 3.4 % (1.0-6.0); HEMATOCRIT 33.4 % (36-46); HEMOGLOBIN 10.8 g/dL (12.0-16.0); LYMPHOCYTES % (AUTO) 15.1 % (22.0-44.0); MEAN CORPUSCULAR HEMOGLOBIN 28.6 pg (26.0-34.0); MEAN CORPUSCULAR HGB CONC 32.4 G/dL (31.0-37.0); MEAN CORPUSCULAR VOLUME 88 fL (80-100); MONOCYTES # (AUTO) 0.5 K/uL (0.1-1.0); MONOCYTES % (AUTO) 8.2 % (2.0-9.0); NEUTROPHILS # (AUTO) 4.6 K/uL (1.8-7.7); NEUTROPHILS % (AUTO) 72.5 % (40.0-70.0); PLATELET COUNT (AUTO) 217 K/uL (150-450); RED BLOOD CELL COUNT(AUTO) 3.79 MIL/uL (4.00-5.20); RED CELL DISTRIBUTION WIDTH 14.8 % (11.5-14.5)
[2019-02-16 20:29] LABS: ANION GAP 5 mmol/L (8-16); CALCIUM, TOTAL 8.7 mg/dL (8.8-10.5); CARBON DIOXIDE 27 mmol/L (22-29); CHLORIDE 108 mmol/L (98-107); CREATININE 0.74 mg/dL (0.60-1.30); GLOMERULAR FILTR. RATE CALC > 60 mL/min (>60); GLUCOSE,RANDOM 117 mg/dL (70-110); POTASSIUM 4.4 mmol/L (3.5-5.1); SODIUM SERUM 140 mmol/L (136-145); UREA NITROGEN, BLOOD 16 mg/dL (7-18)
[2019-02-16 20:39] LABS: B-TYPE NATRIURETIC PEPTIDE 62 pg/mL (0-100)
[2019-02-16 20:58] LABS: ALANINE AMINOTRANSFERASE 22 U/L (12-78); ALBUMIN 3.3 g/dL (3.4-5.0); ALKALINE PHOSPHATASE 42 U/L (46-116); ASPARTATE AMINOTRANSFERASE 21 U/L (15-37); BILIRUBIN,TOTAL 0.7 mg/dL (0.1-1.0); CREATINE KINASE, TOTAL ONLY 179 U/L (26-192)
[2019-02-16] MEDS ORDERED: ALBUTEROL SULFATE 2.5 MG/0.5 ML NEB SOLUTION NEB ONE (21:00)
[2019-02-16 21:07] LABS: INR 0.9 (0.9-1.1); PROTHROMBIN TIME 9.8 SEC (9.4-11.6)
[2019-02-16] MEDS ORDERED: ACETAMINOPHEN 325 MG TABLET PO PRN (21:15)
[2019-02-16] MEDS ORDERED: ONDANSETRON HCL 4 MG/2 ML VIAL IVP PRN (21:15)
[2019-02-16] MEDS ORDERED: 0.9% SODIUM CHLORIDE 10 ML SYRINGE IVP PRN (21:15)
[2019-02-16 23:06] VITALS: BP 155/72
[2019-02-17] VITALS (7 sets, daily range): BP systolic 123–163; BP diastolic 56–80
[2019-02-17] MEDS ORDERED: ONDANSETRON HCL 4 MG/2 ML VIAL IVP PRN
[2019-02-17] MEDS ORDERED: INSULIN LISPRO 100 UNITS/ML SQ PRN
[2019-02-17] MEDS ORDERED: ALBUTEROL SULFATE 2.5 MG/0.5 ML NEB SOLUTION NEB PRN
[2019-02-17] MEDS ORDERED: 0.9% SODIUM CHLORIDE 10 ML SYRINGE IVP PRN
[2019-02-17] MEDS ORDERED: ZOLPIDEM TARTRATE 5 MG TABLET PO PRN
[2019-02-17] MEDS ORDERED: IPRATROPIUM BROMIDE 0.5 MG/2.5 ML NEB SOLUTION NEB PRN
[2019-02-17] MEDS ORDERED: GLUCAGON,HUMAN RECOMBINANT 1 MG VIAL IM PRN
[2019-02-17] MEDS ORDERED: DEXTROSE 50%-WATER 25 GM/50 ML SYG IVP PRN (00:15)
[2019-02-17 00:50] LABS: THYROID STIMULATING HORMONE 1.27 uIU/mL (0.36-3.74)
[2019-02-17] MEDS ORDERED: SODIUM CHLORIDE 0.9% 250 ML IV ONE (01:00)
[2019-02-17] MEDS: CefTRIAXone 1 GM/DEXTROSE 50 ML IV SCH (01:02)
[2019-02-17] MEDS: HEPARIN SODIUM,PORCINE 5,000 UNITS/ML VIAL SQ SCH ×4 (01:02→23:55)
[2019-02-17] MEDS: AZITHROMYCIN 500 MG/NS 250 ML IV SCH (01:50)
[2019-02-17] MEDS ORDERED: IPRATROPIUM BROMIDE 0.5 MG/2.5 ML NEB SOLUTION NEB SCH (02:00)
[2019-02-17] MEDS ORDERED: ALBUTEROL SULFATE 2.5 MG/0.5 ML NEB SOLUTION NEB SCH (02:00)
[2019-02-17] MEDS: ALBUTEROL SULFATE 2.5 MG/0.5 ML NEB SOLUTION NEB SCH ×4 (02:25→20:23)
[2019-02-17] MEDS: IPRATROPIUM BROMIDE 0.5 MG/2.5 ML NEB SOLUTION NEB SCH ×4 (02:25→20:23)
[2019-02-17 06:12] LABS: BASOPHILS % (AUTO) 0.1 % (0.0-2.0); EOSINOPHILS % (AUTO) 0 % (1.0-6.0); HEMATOCRIT 33.7 % (36-46); HEMOGLOBIN 10.8 g/dL (12.0-16.0); LYMPHOCYTES # (AUTO) 0.2 K/uL (1.0-4.8); LYMPHOCYTES % (AUTO) 3.2 % (22.0-44.0); MEAN CORPUSCULAR HEMOGLOBIN 28.2 pg (26.0-34.0); MEAN CORPUSCULAR HGB CONC 32.1 G/dL (31.0-37.0); MEAN CORPUSCULAR VOLUME 88 fL (80-100); MONOCYTES # (AUTO) 0.1 K/uL (0.1-1.0); MONOCYTES % (AUTO) 1.2 % (2.0-9.0); NEUTROPHILS # (AUTO) 6.5 K/uL (1.8-7.7); PLATELET COUNT (AUTO) 208 K/uL (150-450); RED BLOOD CELL COUNT(AUTO) 3.83 MIL/uL (4.00-5.20)
[2019-02-17 06:14] LABS: NEUTROPHILS % (AUTO) 95.5 % (40.0-70.0)
[2019-02-17 06:20] LABS: ALANINE AMINOTRANSFERASE 23 U/L (12-78); ALBUMIN 3.2 g/dL (3.4-5.0); ALKALINE PHOSPHATASE 40 U/L (46-116); ANION GAP 7 mmol/L (8-16); ASPARTATE AMINOTRANSFERASE 18 U/L (15-37); BILIRUBIN,TOTAL 0.6 mg/dL (0.1-1.0); CALCIUM, TOTAL 8.8 mg/dL (8.8-10.5); CARBON DIOXIDE 29 mmol/L (22-29); CHLORIDE 106 mmol/L (98-107); CREATININE 0.78 mg/dL (0.60-1.30); GLUCOSE,RANDOM 104 mg/dL (70-110); POTASSIUM 4.8 mmol/L (3.5-5.1); SODIUM SERUM 142 mmol/L (136-145); TOTAL PROTEIN, SERUM 6.2 g/dL (6.4-8.2); UREA NITROGEN, BLOOD 18 mg/dL (7-18)
[2019-02-17 06:25] LABS: GLOMERULAR FILTR. RATE CALC > 60 mL/min (>60)
[2019-02-17 08:19] LABS: GLUCOMETER DEV NAME(LOC) 5S.1; GLUCOSE,POINT OF CARE 106 MG/DL (70-110)
[2019-02-17] MEDS: ATORVASTATIN CALCIUM 20 MG TABLET PO SCH (08:43)
[2019-02-17] MEDS: MONTELUKAST SODIUM 10 MG TABLET PO SCH (08:43)
[2019-02-17] MEDS: AmLODIPine BESYLATE 5 MG TABLET PO SCH (08:44)
[2019-02-17] MEDS: PANTOPRAZOLE SODIUM 40 MG/VIAL IVP SCH (08:44)
[2019-02-17] MEDS: ASPIRIN 81 MG EC TABLET PO SCH (08:44)
[2019-02-17] MEDS ORDERED: MethylPREDNISolone SOD SUCC 40 MG/ML VIAL IVP SCH (09:00)
[2019-02-17] MEDS: MetFORMIN HCL 500 MG TABLET PO SCH ×2 (09:01→18:03)
[2019-02-17 14:49] LABS: GLUCOMETER DEV NAME(LOC) 5N.1; GLUCOSE,POINT OF CARE 128 MG/DL (70-110)
[2019-02-17] MEDS: MethylPREDNISolone SOD SUCC 125 MG/2 ML VIAL IVP SCH ×2 (16:14→20:44)
[2019-02-17 17:34] LABS: GLUCOMETER DEV NAME(LOC) 5S.1; GLUCOSE,POINT OF CARE 159 MG/DL (70-110)
[2019-02-17] MEDS: INSULIN LISPRO 100 UNITS/ML SQ PRN ×2 (18:06→20:46)
[2019-02-17] MEDS ORDERED: MAGNESIUM OXIDE 400 MG TABLET PO ONE (20:45)
[2019-02-17] MEDS: ACETAMINOPHEN 325 MG TABLET PO PRN (23:55)
[2019-02-18] MEDS: CefTRIAXone 1 GM/DEXTROSE 50 ML IV SCH (01:01)
[2019-02-18] MEDS: AZITHROMYCIN 500 MG/NS 250 ML IV SCH (01:41)
[2019-02-18] MEDS: IPRATROPIUM BROMIDE 0.5 MG/2.5 ML NEB SOLUTION NEB SCH ×4 (01:56→20:18)
[2019-02-18] MEDS: ALBUTEROL SULFATE 2.5 MG/0.5 ML NEB SOLUTION NEB SCH ×4 (01:56→20:18)
[2019-02-18] MEDS: MethylPREDNISolone SOD SUCC 125 MG/2 ML VIAL IVP SCH ×4 (03:09→20:17)
[2019-02-18 04:35] VITALS: BP 135/71
[2019-02-18 07:04] VITALS: BP 144/66
[2019-02-18 08:04] LABS: GLUCOMETER DEV NAME(LOC) 5N.1; GLUCOSE,POINT OF CARE 225 MG/DL (70-110)
[2019-02-18 08:04] LABS: GLUCOMETER DEV NAME(LOC) 5N.1; GLUCOSE,POINT OF CARE 130 MG/DL (70-110)
[2019-02-18] MEDS: PANTOPRAZOLE SODIUM 40 MG/VIAL IVP SCH (08:18)
[2019-02-18] MEDS: MONTELUKAST SODIUM 10 MG TABLET PO SCH (08:19)
[2019-02-18] MEDS: HEPARIN SODIUM,PORCINE 5,000 UNITS/ML VIAL SQ SCH ×3 (08:19→23:40)
[2019-02-18] MEDS: AmLODIPine BESYLATE 5 MG TABLET PO SCH (08:20)
[2019-02-18] MEDS: MetFORMIN HCL 500 MG TABLET PO SCH ×2 (08:20→18:09)
[2019-02-18] MEDS: ATORVASTATIN CALCIUM 20 MG TABLET PO SCH (08:21)
[2019-02-18] MEDS: ASPIRIN 81 MG EC TABLET PO SCH (08:21)
[2019-02-18 11:12] VITALS: BP 139/64
[2019-02-18] MEDS: INSULIN LISPRO 100 UNITS/ML SQ PRN ×3 (11:38→20:14)
[2019-02-18 13:09] LABS: GLUCOMETER DEV NAME(LOC) 5N.1; GLUCOSE,POINT OF CARE 213 MG/DL (70-110)
[2019-02-18 15:09] VITALS: BP 138/59
[2019-02-18] MEDS ORDERED: MAGNESIUM HYDROXIDE SUSPENSION 30 ML UDCUP PO PRN (15:30)
[2019-02-18 19:16] VITALS: BP 150/71
[2019-02-18 21:29] LABS: GLUCOMETER DEV NAME(LOC) 5N.1; GLUCOSE,POINT OF CARE 162 MG/DL (70-110)
[2019-02-18 21:29] LABS: GLUCOMETER DEV NAME(LOC) 5N.1; GLUCOSE,POINT OF CARE 157 MG/DL (70-110)
[2019-02-18] MEDS: ACETAMINOPHEN 325 MG TABLET PO PRN (23:39)
[2019-02-18 23:56] VITALS: BP 145/66
[2019-02-19] MEDS: CefTRIAXone 1 GM/DEXTROSE 50 ML IV SCH ×2 (00:02→23:26)
[2019-02-19] MEDS: AZITHROMYCIN 500 MG/NS 250 ML IV SCH (01:26)
[2019-02-19] MEDS: ALBUTEROL SULFATE 2.5 MG/0.5 ML NEB SOLUTION NEB SCH ×4 (02:20→20:12)
[2019-02-19] MEDS: IPRATROPIUM BROMIDE 0.5 MG/2.5 ML NEB SOLUTION NEB SCH ×4 (02:20→20:12)
[2019-02-19] MEDS: MethylPREDNISolone SOD SUCC 125 MG/2 ML VIAL IVP SCH ×3 (03:10→14:25)
[2019-02-19 04:47] VITALS: BP 133/56
[2019-02-19] MEDS: INSULIN LISPRO 100 UNITS/ML SQ PRN ×4 (06:06→21:15)
[2019-02-19] MEDS: MetFORMIN HCL 500 MG TABLET PO SCH ×2 (07:58→18:06)
[2019-02-19] MEDS: HEPARIN SODIUM,PORCINE 5,000 UNITS/ML VIAL SQ SCH ×3 (07:58→23:21)
[2019-02-19] MEDS: ASPIRIN 81 MG EC TABLET PO SCH (07:59)
[2019-02-19] MEDS: MONTELUKAST SODIUM 10 MG TABLET PO SCH (07:59)
[2019-02-19] MEDS: PANTOPRAZOLE SODIUM 40 MG/VIAL IVP SCH (07:59)
[2019-02-19] MEDS: AmLODIPine BESYLATE 5 MG TABLET PO SCH (07:59)
[2019-02-19] MEDS: ATORVASTATIN CALCIUM 20 MG TABLET PO SCH (07:59)
[2019-02-19 08:04] VITALS: BP 149/72
[2019-02-19 10:55] LABS: GLUCOMETER DEV NAME(LOC) 5N.1; GLUCOSE,POINT OF CARE 158 MG/DL (70-110)
[2019-02-19 11:28] VITALS: BP 139/64
[2019-02-19 12:34] LABS: GLUCOMETER DEV NAME(LOC) 5S.1; GLUCOSE,POINT OF CARE 236 MG/DL (70-110)
[2019-02-19 15:45] VITALS: BP 133/71
[2019-02-19] MEDS: LACTULOSE 20 GM/30 ML SOLUTION UDCUP PO PRN (17:34)
[2019-02-19 19:55] VITALS: BP 155/63
[2019-02-19] MEDS: MethylPREDNISolone SOD SUCC 40 MG/ML VIAL IVP SCH (20:06)
[2019-02-19 23:40] VITALS: BP 150/78
[2019-02-19] MEDS: ACETAMINOPHEN 325 MG TABLET PO PRN (23:59)
[2019-02-20] MEDS: AZITHROMYCIN 500 MG/NS 250 ML IV SCH
[2019-02-20] MEDS: ALBUTEROL SULFATE 2.5 MG/0.5 ML NEB SOLUTION NEB SCH ×2 (01:52→07:52)
[2019-02-20] MEDS: IPRATROPIUM BROMIDE 0.5 MG/2.5 ML NEB SOLUTION NEB SCH ×2 (01:52→07:52)
[2019-02-20 02:19] LABS: GLUCOMETER DEV NAME(LOC) 5S.1; GLUCOSE,POINT OF CARE 280 MG/DL (70-110)
[2019-02-20 02:19] LABS: GLUCOMETER DEV NAME(LOC) 5S.1; GLUCOSE,POINT OF CARE 164 MG/DL (70-110)
[2019-02-20 04:12] VITALS: BP 150/60
[2019-02-20] MEDS: INSULIN LISPRO 100 UNITS/ML SQ PRN ×2 (06:44→11:37)
[2019-02-20 07:08] VITALS: BP 134/78
[2019-02-20] MEDS: MetFORMIN HCL 500 MG TABLET PO SCH (08:31)
[2019-02-20] MEDS: HEPARIN SODIUM,PORCINE 5,000 UNITS/ML VIAL SQ SCH (08:31)
[2019-02-20] MEDS: MethylPREDNISolone SOD SUCC 40 MG/ML VIAL IVP SCH (08:31)
[2019-02-20] MEDS: LACTULOSE 20 GM/30 ML SOLUTION UDCUP PO PRN (08:32)
[2019-02-20] MEDS: ASPIRIN 81 MG EC TABLET PO SCH (08:32)
[2019-02-20] MEDS: PANTOPRAZOLE SODIUM 40 MG/VIAL IVP SCH (08:32)
[2019-02-20] MEDS: ATORVASTATIN CALCIUM 20 MG TABLET PO SCH (08:32)
[2019-02-20] MEDS: AmLODIPine BESYLATE 5 MG TABLET PO SCH (08:32)
[2019-02-20] MEDS: MONTELUKAST SODIUM 10 MG TABLET PO SCH (08:36)
[2019-02-20 08:44] LABS: GLUCOMETER DEV NAME(LOC) 5N.1; GLUCOSE,POINT OF CARE 163 MG/DL (70-110)
[2019-02-20 10:54] VITALS: BP 127/63
[2019-02-20] MEDS ORDERED: AZIT250T9 PO (12:07)
[2019-02-20] MEDS ORDERED: AMOX1TAB16 PO (12:09)
== END 2019-02-20 14:30 | disposition home or self-care (01) | DRG 192 ==
LOC: EDUNIT# 18:25 → EMS 18:26 → 5S 22:00
PROVIDERS: ADMIT Internal Medicine; ATTEND Internal Medicine
DX: J44.1 Chronic obstructive pulmonary disease with (acute) exacerbation (principal); J40 Bronchitis, not specified as acute or chronic; M19.90 Unspecified osteoarthritis, unspecified site; E11.8 Type 2 diabetes mellitus with unspecified complications; K21.9 Gastro-esophageal reflux disease without esophagitis; I10 Essential (primary) hypertension; E05.90 Thyrotoxicosis, unspecified without thyrotoxic crisis or storm; E11.51 Type 2 diabetes mellitus with diabetic peripheral angiopathy without gangrene; R09.02 Hypoxemia; E78.00 Pure hypercholesterolemia, unspecified; M85.80 Other specified disorders of bone density and structure, unspecified site; Z82.49 Family history of ischemic heart disease and other diseases of the circulatory system; Z83.3 Family history of diabetes mellitus; Z87.891 Personal history of nicotine dependence; Z90.710 Acquired absence of both cervix and uterus; Z99.81 Dependence on supplemental oxygen; Z88.0 Allergy status to penicillin
CPT/HCPCS: 83735; 84443; 87081; 93005; 94640; 96374; C9113; G0378; J0456; J0696; J1644; J2405; J2920; J2930; J7050

== ENCOUNTER 2019-07-02 02:35 | Inpatient (IN) | payer OTHER ==
[~2019-07-02] VITALS: Ht 157.5 cm; Wt 67.1 kg
[~2019-07-02 02:35] MED LIST changes: +ALBU8HFA IH; -ALBU8HFA4 IH; -AMLO-511 PO; +AMLO5TAB9 PO; -AZIT250T9 PO; -CLOT10T PO; -FERR-89 PO; -LACT30L PO; +PRED10 PO; -PRED20 PO
[2019-07-02] MEDS ORDERED: SODIUM CHLORIDE 0.9% 1,750 ML IV ONE (02:43)
[2019-07-02] MEDS ORDERED: 0.9% SODIUM CHLORIDE 10 ML SYRINGE IVP PRN ×3 (02:45→10:15)
[2019-07-02] MEDS ORDERED: ACETAMINOPHEN 1000 MG/ISO-OSM 100 ML IV ONE (02:45)
[2019-07-02 03:27] LABS: CALCIUM, TOTAL 8.8 mg/dL (8.8-10.5); CREATININE 1.13 mg/dL (0.60-1.30); POTASSIUM 4.3 mmol/L (3.5-5.1)
[2019-07-02 03:27] LABS: BASOPHILS % (AUTO) 0.6 % (0.0-2.0); EOSINOPHILS % (AUTO) 1.1 % (1.0-6.0); HEMATOCRIT 32.8 % (36-46); HEMOGLOBIN 10.6 g/dL (12.0-16.0); LYMPHOCYTES # (AUTO) 0.8 K/uL (1.0-4.8); LYMPHOCYTES % (AUTO) 11.2 % (22.0-44.0); MEAN CORPUSCULAR HEMOGLOBIN 28.3 pg (26.0-34.0); MEAN CORPUSCULAR HGB CONC 32.2 G/dL (31.0-37.0); MEAN CORPUSCULAR VOLUME 88 fL (80-100); MONOCYTES # (AUTO) 0.8 K/uL (0.1-1.0); MONOCYTES % (AUTO) 10.8 % (2.0-9.0); NEUTROPHILS # (AUTO) 5.8 K/uL (1.8-7.7); NEUTROPHILS % (AUTO) 76.3 % (40.0-70.0); PLATELET COUNT (AUTO) 205 K/uL (150-450); RED BLOOD CELL COUNT(AUTO) 3.73 MIL/uL (4.00-5.20); RED CELL DISTRIBUTION WIDTH 14.7 % (11.5-14.5)
[2019-07-02 03:33] LABS: INR 0.9 (0.9-1.1); PROTHROMBIN TIME 9.6 SEC (9.4-11.6)
[2019-07-02 03:33] LABS: ALBUMIN 3.3 g/dL (3.4-5.0); BILIRUBIN,TOTAL 0.9 mg/dL (0.1-1.0)
[2019-07-02 03:35] LABS: LACTIC ACID 0.8 mmol/L (0.4-2.0)
[2019-07-02 03:49] LABS: INFLUENZA TYPE A NEGATIVE FOR TYPE A (NEGATIVE); INFLUENZA TYPE B NEGATIVE FOR TYPE B (NEGATIVE)
[2019-07-02 04:01] LABS: APPEARANCE,URINE CLOUDY (CLEAR); BILIRUBIN,URINE NEGATIVE (NEGATIVE); GLUCOSE, URINE (UA) NEGATIVE (NEGATIVE); KETONES,URINE NEGATIVE (NEGATIVE); LEUKOCYTE ESTERASE ,URINE NEGATIVE (NEGATIVE); NITRATE,URINE POSITIVE (NEGATIVE); OCCULT BLOOD,URINE SMALL (NEGATIVE); PROTEIN,URINE SEE CONFIRM (NEGATIVE)
[2019-07-02 04:08] LABS: RBC,URINE 26-50 /HPF (0-2)
[2019-07-02 04:09] LABS: BACTERIA,URINE Moderate /HPF (None Seen); SQUAMOUS EPITHELIAL CELL,UR Few /LPF (None Seen); SULFOSALICYLIC ACID,URINE 2+ (Negative)
[2019-07-02] MEDS ORDERED: ONDANSETRON HCL 4 MG/2 ML VIAL IVP ONE (05:00)
[2019-07-02] MEDS ORDERED: ALBUTEROL SULFATE 5 MG/ML 20 ML NEB SOLN [BULK] NEB ONE ×2 (05:00→08:00)
[2019-07-02] MEDS ORDERED: CIPROFLOXACIN 400 MG/D5% WATER 200 ML IV ONE (05:00)
[2019-07-02] MEDS ORDERED: MORPHINE SULFATE 4 MG/ML SYRINGE IVP ONE (05:00)
[2019-07-02] MEDS ORDERED: IPRATROPIUM BROMIDE 0.5 MG/2.5 ML NEB SOLUTION NEB ONE ×2 (05:00→08:00)
[2019-07-02] MEDS ORDERED: IOVERSOL 350 MG/ML 100 ML VIAL ONE (05:10)
[2019-07-02] MEDS ORDERED: SODIUM CHLORIDE 0.9% 100 ML ONE (05:11)
[2019-07-02] MEDS ORDERED: 0.9% SODIUM CHLORIDE 5 ML NEB SOLUTION NEB ONE (05:14)
[2019-07-02] MEDS ORDERED: SULFAMETHOX/TRIMETH DS 800-160 MG/TABLET PO ONE (07:00)
[2019-07-02] MEDS ORDERED: MethylPREDNISolone SOD SUCC 125 MG/2 ML VIAL IVP ONE (07:15)
[2019-07-02] MEDS ORDERED: ACETAMINOPHEN 325 MG TABLET PO PRN (08:15)
[2019-07-02] MEDS ORDERED: ONDANSETRON HCL 4 MG/2 ML VIAL IVP PRN ×2 (08:15→10:15)
[2019-07-02] MEDS ORDERED: SULFAMETHOX/TRIMETH DS 800-160 MG/TABLET PO SCH (10:00)
[2019-07-02] MEDS ORDERED: MAGNESIUM HYDROXIDE SUSPENSION 30 ML UDCUP PO PRN (10:15)
[2019-07-02] MEDS ORDERED: IPRATROPIUM BROMIDE 0.5 MG/2.5 ML NEB SOLUTION NEB PRN (10:15)
[2019-07-02] MEDS ORDERED: BISACODYL 10 MG RECTAL RECTAL SUPPOSITORY PR PRN (10:15)
[2019-07-02] MEDS ORDERED: DEXTROSE 50%-WATER 25 GM/50 ML SYRINGE IVP PRN (10:15)
[2019-07-02] MEDS: HEPARIN SODIUM,PORCINE 5,000 UNITS/ML VIAL SQ SCH ×2 (10:34→20:29)
[2019-07-02] MEDS: SODIUM CHLORIDE 0.9% 1,000 ML IV SCH ×2 (10:34→23:18)
[2019-07-02] MEDS: PANTOPRAZOLE SODIUM 40 MG DR TABLET PO SCH (10:35)
[2019-07-02] MEDS: MULTIVITAMINS, THERAPEUTIC TABLET PO SCH (10:35)
[2019-07-02 12:06] LABS: GLUCOSE,POINT OF CARE 182 MG/DL (70-110)
[2019-07-02 13:19] VITALS: BP 142/60
[2019-07-02] MEDS ORDERED: PNEUMOCOCCAL VACCINE POLYVALENT 0.5 ML VIAL [PPSV23] IM ONE (13:30)
[2019-07-02] MEDS: MethylPREDNISolone SOD SUCC 40 MG/ML VIAL IVP SCH ×3 (13:33→23:18)
[2019-07-02] MEDS ORDERED: ALBUTEROL SULFATE 2.5 MG/0.5 ML NEB SOLUTION NEB SCH (14:00)
[2019-07-02] MEDS ORDERED: IPRATROPIUM BROMIDE 0.5 MG/2.5 ML NEB SOLUTION NEB SCH (14:00)
[2019-07-02] MEDS: IPRATROPIUM BROMIDE 0.5 MG/2.5 ML NEB SOLUTION NEB SCH ×2 (15:08→19:14)
[2019-07-02] MEDS: ALBUTEROL SULFATE 2.5 MG/0.5 ML NEB SOLUTION NEB SCH ×2 (15:08→19:14)
[2019-07-02] MEDS: CefTRIAXone 1 GM/DEXTROSE 50 ML IV SCH (16:18)
[2019-07-02 16:25] VITALS: BP 145/65
[2019-07-02] MEDS: AZITHROMYCIN 500 MG/NS 250 ML IV SCH (18:12)
[2019-07-02 19:42] VITALS: BP 136/58
[2019-07-02] MEDS: DOCUSATE SODIUM 100 MG CAPSULE PO SCH (20:28)
[2019-07-02] MEDS: ACETAMINOPHEN 325 MG TABLET PO PRN (20:29)
[2019-07-02] MEDS: INSULIN LISPRO 100 UNITS/ML SQ PRN (21:03)
[2019-07-02] MEDS: SULFAMETHOX/TRIMETH DS 800-160 MG/TABLET PO SCH (22:13)
[2019-07-02 23:41] VITALS: BP 143/60
[2019-07-03 01:25] LABS: GLUCOMETER DEV NAME(LOC) 5N.1; GLUCOSE,POINT OF CARE 215 MG/DL (70-110)
[2019-07-03] MEDS: ALBUTEROL SULFATE 2.5 MG/0.5 ML NEB SOLUTION NEB SCH ×4 (02:00→19:44)
[2019-07-03] MEDS: IPRATROPIUM BROMIDE 0.5 MG/2.5 ML NEB SOLUTION NEB SCH ×4 (02:00→19:44)
[2019-07-03 03:26] VITALS: BP 150/71
[2019-07-03] MEDS: ACETAMINOPHEN 325 MG TABLET PO PRN ×2 (03:40→16:40)
[2019-07-03] MEDS: MethylPREDNISolone SOD SUCC 40 MG/ML VIAL IVP SCH ×3 (06:05→17:54)
[2019-07-03] MEDS: INSULIN LISPRO 100 UNITS/ML SQ PRN ×4 (06:17→21:28)
[2019-07-03 06:48] LABS: BASOPHILS % (AUTO) 0.2 % (0.0-2.0); EOSINOPHILS % (AUTO) 0 % (1.0-6.0); HEMATOCRIT 29.8 % (36-46); HEMOGLOBIN 9.5 g/dL (12.0-16.0); LYMPHOCYTES # (AUTO) 0.2 K/uL (1.0-4.8); LYMPHOCYTES % (AUTO) 4.2 % (22.0-44.0); MEAN CORPUSCULAR HEMOGLOBIN 27.9 pg (26.0-34.0); MEAN CORPUSCULAR HGB CONC 31.9 G/dL (31.0-37.0); MEAN CORPUSCULAR VOLUME 88 fL (80-100); MONOCYTES # (AUTO) 0.2 K/uL (0.1-1.0); MONOCYTES % (AUTO) 3.3 % (2.0-9.0); NEUTROPHILS # (AUTO) 5.4 K/uL (1.8-7.7); PLATELET COUNT (AUTO) 206 K/uL (150-450); RED BLOOD CELL COUNT(AUTO) 3.41 MIL/uL (4.00-5.20); RED CELL DISTRIBUTION WIDTH 14.2 % (11.5-14.5)
[2019-07-03 07:00] LABS: NEUTROPHILS % (AUTO) 92.3 % (40.0-70.0)
[2019-07-03 07:23] LABS: ALANINE AMINOTRANSFERASE 28 U/L (12-78); ALKALINE PHOSPHATASE 46 U/L (46-116); ANION GAP 9 mmol/L (8-16); ASPARTATE AMINOTRANSFERASE 24 U/L (15-37); BILIRUBIN,TOTAL 0.3 mg/dL (0.1-1.0); CALCIUM, TOTAL 8.6 mg/dL (8.8-10.5); CARBON DIOXIDE 24 mmol/L (22-29); CHLORIDE 105 mmol/L (98-107); CREATININE 0.88 mg/dL (0.60-1.30); GLOMERULAR FILTR. RATE CALC > 60 mL/min (>60); GLUCOSE,RANDOM 206 mg/dL (70-110); POTASSIUM 3.7 mmol/L (3.5-5.1); SODIUM SERUM 138 mmol/L (136-145); TOTAL PROTEIN, SERUM 6.2 g/dL (6.4-8.2); UREA NITROGEN, BLOOD 23 mg/dL (7-18)
[2019-07-03 08:01] LABS: HEMOGLOBIN A1C 6.4 % (4.5-6.2)
[2019-07-03 08:03] VITALS: BP 160/70
[2019-07-03] MEDS: MONTELUKAST SODIUM 10 MG TABLET PO SCH (08:33)
[2019-07-03] MEDS: PANTOPRAZOLE SODIUM 40 MG DR TABLET PO SCH (08:34)
[2019-07-03] MEDS: SULFAMETHOX/TRIMETH DS 800-160 MG/TABLET PO SCH ×2 (08:34→20:35)
[2019-07-03] MEDS: AmLODIPine BESYLATE 5 MG TABLET PO SCH (08:34)
[2019-07-03] MEDS: MULTIVITAMINS, THERAPEUTIC TABLET PO SCH (08:34)
[2019-07-03] MEDS: DOCUSATE SODIUM 100 MG CAPSULE PO SCH ×2 (08:34→20:35)
[2019-07-03] MEDS: ATORVASTATIN CALCIUM 20 MG TABLET PO SCH (08:34)
[2019-07-03] MEDS: ASPIRIN 81 MG EC TABLET PO SCH (08:35)
[2019-07-03] MEDS: HEPARIN SODIUM,PORCINE 5,000 UNITS/ML VIAL SQ SCH ×2 (08:35→20:35)
[2019-07-03 11:40] LABS: GLUCOMETER DEV NAME(LOC) 5N.2; GLUCOSE,POINT OF CARE 196 MG/DL (70-110)
[2019-07-03] MEDS: SODIUM CHLORIDE 0.9% 1,000 ML IV SCH (12:27)
[2019-07-03] MEDS ORDERED: 0.9% SODIUM CHLORIDE 5 ML NEB SOLUTION NEB ONE (13:19)
[2019-07-03] MEDS: ALBUTEROL SULFATE 2.5 MG/0.5 ML NEB SOLUTION NEB PRN (13:20)
[2019-07-03 15:54] VITALS: BP 142/54
[2019-07-03 15:55] LABS: GLUCOMETER DEV NAME(LOC) 5N.1; GLUCOSE,POINT OF CARE 198 MG/DL (70-110)
[2019-07-03] MEDS: CefTRIAXone 1 GM/DEXTROSE 50 ML IV SCH (16:40)
[2019-07-03] MEDS: AZITHROMYCIN 500 MG/NS 250 ML IV SCH (17:54)
[2019-07-03 19:44] VITALS: BP 141/67
[2019-07-03 20:21] LABS: GLUCOMETER DEV NAME(LOC) 5S.2A; GLUCOSE,POINT OF CARE 164 MG/DL (70-110)
[2019-07-03] MEDS: BENZONATATE 100 MG CAPSULE PO SCH ×2 (20:35→23:20)
[2019-07-03] MEDS: BUDESONIDE 0.5 MG/2 ML NEB SOLUTION NEB SCH (21:07)
[2019-07-03 23:20] LABS: GLUCOMETER DEV NAME(LOC) 5S.1; GLUCOSE,POINT OF CARE 209 MG/DL (70-110)
[2019-07-03] MEDS: MethylPREDNISolone SOD SUCC 125 MG/2 ML VIAL IVP SCH (23:20)
[2019-07-03 23:51] VITALS: BP 143/85
[2019-07-04] MEDS: ACETAMINOPHEN 325 MG TABLET PO PRN (00:34)
[2019-07-04] MEDS: IPRATROPIUM BROMIDE 0.5 MG/2.5 ML NEB SOLUTION NEB SCH ×4 (01:20→19:54)
[2019-07-04] MEDS: ALBUTEROL SULFATE 2.5 MG/0.5 ML NEB SOLUTION NEB SCH ×4 (01:20→20:49)
[2019-07-04 03:50] VITALS: BP 145/65
[2019-07-04] MEDS: MethylPREDNISolone SOD SUCC 125 MG/2 ML VIAL IVP SCH ×3 (05:35→17:59)
[2019-07-04] MEDS: INSULIN LISPRO 100 UNITS/ML SQ PRN ×4 (05:48→21:45)
[2019-07-04 06:17] LABS: ANION GAP 6 mmol/L (8-16); CARBON DIOXIDE 27 mmol/L (22-29); CHLORIDE 104 mmol/L (98-107); CREATININE 0.88 mg/dL (0.60-1.30); GLUCOSE,RANDOM 187 mg/dL (70-110); POTASSIUM 4.3 mmol/L (3.5-5.1); SODIUM SERUM 137 mmol/L (136-145); UREA NITROGEN, BLOOD 26 mg/dL (7-18)
[2019-07-04 06:21] LABS: GLOMERULAR FILTR. RATE CALC > 60 mL/min (>60)
[2019-07-04 06:51] LABS: BASOPHILS % (AUTO) 0.3 % (0.0-2.0); EOSINOPHILS % (AUTO) 0 % (1.0-6.0); HEMATOCRIT 30.2 % (36-46); HEMOGLOBIN 9.8 g/dL (12.0-16.0); LYMPHOCYTES # (AUTO) 0.3 K/uL (1.0-4.8); LYMPHOCYTES % (AUTO) 3.9 % (22.0-44.0); MEAN CORPUSCULAR HEMOGLOBIN 28.5 pg (26.0-34.0); MEAN CORPUSCULAR HGB CONC 32.3 G/dL (31.0-37.0); MEAN CORPUSCULAR VOLUME 88 fL (80-100); MONOCYTES # (AUTO) 0.3 K/uL (0.1-1.0); MONOCYTES % (AUTO) 3.6 % (2.0-9.0); NEUTROPHILS # (AUTO) 7.7 K/uL (1.8-7.7); PLATELET COUNT (AUTO) 257 K/uL (150-450); RED BLOOD CELL COUNT(AUTO) 3.43 MIL/uL (4.00-5.20); RED CELL DISTRIBUTION WIDTH 14.4 % (11.5-14.5)
[2019-07-04 06:53] LABS: NEUTROPHILS % (AUTO) 92.2 % (40.0-70.0)
[2019-07-04 07:40] LABS: GLUCOMETER DEV NAME(LOC) 5N.2; GLUCOSE,POINT OF CARE 168 MG/DL (70-110)
[2019-07-04] MEDS: BUDESONIDE 0.5 MG/2 ML NEB SOLUTION NEB SCH ×3 (07:40→20:49)
[2019-07-04] MEDS: ATORVASTATIN CALCIUM 20 MG TABLET PO SCH (08:15)
[2019-07-04] MEDS: BENZONATATE 100 MG CAPSULE PO SCH ×2 (08:15→15:18)
[2019-07-04] MEDS: MULTIVITAMINS, THERAPEUTIC TABLET PO SCH (08:15)
[2019-07-04] MEDS: PANTOPRAZOLE SODIUM 40 MG DR TABLET PO SCH (08:15)
[2019-07-04] MEDS: DOCUSATE SODIUM 100 MG CAPSULE PO SCH ×2 (08:15→21:00)
[2019-07-04] MEDS: AmLODIPine BESYLATE 5 MG TABLET PO SCH (08:15)
[2019-07-04] MEDS: MONTELUKAST SODIUM 10 MG TABLET PO SCH (08:15)
[2019-07-04] MEDS: SULFAMETHOX/TRIMETH DS 800-160 MG/TABLET PO SCH ×2 (08:15→22:07)
[2019-07-04] MEDS: ASPIRIN 81 MG EC TABLET PO SCH (08:15)
[2019-07-04] MEDS: HEPARIN SODIUM,PORCINE 5,000 UNITS/ML VIAL SQ SCH ×2 (08:16→22:07)
[2019-07-04 08:21] VITALS: BP 150/59
[2019-07-04 11:10] VITALS: BP 142/70
[2019-07-04] MEDS: CefTRIAXone 1 GM/DEXTROSE 50 ML IV SCH (15:18)
[2019-07-04 16:13] VITALS: BP 158/78
[2019-07-04] MEDS ORDERED: GuaiFENesin/D-METHORPHAN [SUGAR-FREE] 200-20MG/10 ML SYRUP UDCUP PO PRN (16:45)
[2019-07-04] MEDS: AZITHROMYCIN 500 MG/NS 250 ML IV SCH (17:18)
[2019-07-04 19:34] VITALS: BP 146/80
[2019-07-04 21:26] LABS: GLUCOMETER DEV NAME(LOC) 5S.2A; GLUCOSE,POINT OF CARE 213 MG/DL (70-110)
[2019-07-04 23:31] VITALS: BP 141/68
[2019-07-05] MEDS: BENZONATATE 100 MG CAPSULE PO SCH ×4 (00:51→23:12)
[2019-07-05] MEDS: MethylPREDNISolone SOD SUCC 125 MG/2 ML VIAL IVP SCH ×4 (00:52→17:50)
[2019-07-05] MEDS: IPRATROPIUM BROMIDE 0.5 MG/2.5 ML NEB SOLUTION NEB SCH ×4 (02:05→19:21)
[2019-07-05] MEDS: ALBUTEROL SULFATE 2.5 MG/0.5 ML NEB SOLUTION NEB SCH ×4 (02:05→19:21)
[2019-07-05 04:17] VITALS: BP 144/72
[2019-07-05] MEDS: INSULIN LISPRO 100 UNITS/ML SQ PRN ×4 (05:54→20:54)
[2019-07-05 06:52] LABS: BASOPHILS % (AUTO) 0.3 % (0.0-2.0); EOSINOPHILS % (AUTO) 0 % (1.0-6.0); HEMATOCRIT 31.2 % (36-46); HEMOGLOBIN 10.2 g/dL (12.0-16.0); LYMPHOCYTES # (AUTO) 0.4 K/uL (1.0-4.8); MEAN CORPUSCULAR HEMOGLOBIN 28.9 pg (26.0-34.0); MEAN CORPUSCULAR HGB CONC 32.8 G/dL (31.0-37.0); MEAN CORPUSCULAR VOLUME 88 fL (80-100); MONOCYTES # (AUTO) 0.5 K/uL (0.1-1.0); MONOCYTES % (AUTO) 5.8 % (2.0-9.0); PLATELET COUNT (AUTO) 287 K/uL (150-450); RED BLOOD CELL COUNT(AUTO) 3.55 MIL/uL (4.00-5.20); RED CELL DISTRIBUTION WIDTH 14.5 % (11.5-14.5)
[2019-07-05 06:56] LABS: NEUTROPHILS % (AUTO) 88.9 % (40.0-70.0)
[2019-07-05 07:00] LABS: CALCIUM, TOTAL 9.1 mg/dL (8.8-10.5); CREATININE 0.93 mg/dL (0.60-1.30); POTASSIUM 4.7 mmol/L (3.5-5.1)
[2019-07-05 07:58] VITALS: BP 155/60
[2019-07-05 08:21] LABS: GLUCOMETER DEV NAME(LOC) 5N.1; GLUCOSE,POINT OF CARE 164 MG/DL (70-110)
[2019-07-05 08:21] LABS: GLUCOMETER DEV NAME(LOC) 5N.1; GLUCOSE,POINT OF CARE 218 MG/DL (70-110)
[2019-07-05] MEDS: MONTELUKAST SODIUM 10 MG TABLET PO SCH (08:23)
[2019-07-05] MEDS: MULTIVITAMINS, THERAPEUTIC TABLET PO SCH (08:24)
[2019-07-05] MEDS: AmLODIPine BESYLATE 5 MG TABLET PO SCH (08:24)
[2019-07-05] MEDS: ASPIRIN 81 MG EC TABLET PO SCH (08:24)
[2019-07-05] MEDS: PANTOPRAZOLE SODIUM 40 MG DR TABLET PO SCH (08:24)
[2019-07-05] MEDS: SULFAMETHOX/TRIMETH DS 800-160 MG/TABLET PO SCH ×2 (08:24→20:48)
[2019-07-05] MEDS: ATORVASTATIN CALCIUM 20 MG TABLET PO SCH (08:24)
[2019-07-05] MEDS: HEPARIN SODIUM,PORCINE 5,000 UNITS/ML VIAL SQ SCH ×2 (08:25→20:49)
[2019-07-05] MEDS: DOCUSATE SODIUM 100 MG CAPSULE PO SCH ×3 (08:26→21:00)
[2019-07-05] MEDS: BUDESONIDE 0.5 MG/2 ML NEB SOLUTION NEB SCH ×2 (09:24→20:08)
[2019-07-05 11:24] VITALS: BP 145/61
[2019-07-05] MEDS: PROMETHAZINE HCL/CODEINE 6.25-10MG/5ML SYRUP UDCUP PO PRN ×2 (14:53→23:12)
[2019-07-05] MEDS: CefTRIAXone 1 GM/DEXTROSE 50 ML IV SCH (15:27)
[2019-07-05 15:47] VITALS: BP 148/56
[2019-07-05] MEDS: AZITHROMYCIN 500 MG/NS 250 ML IV SCH (17:50)
[2019-07-05 20:11] VITALS: BP 151/77
[2019-07-05] MEDS: ACETAMINOPHEN 325 MG TABLET PO PRN (23:12)
[2019-07-05] MEDS: MethylPREDNISolone SOD SUCC 40 MG/ML VIAL IVP SCH (23:12)
[2019-07-05 23:14] VITALS: BP 147/73
[2019-07-06] MEDS: ALBUTEROL SULFATE 2.5 MG/0.5 ML NEB SOLUTION NEB SCH ×4 (01:12→19:41)
[2019-07-06] MEDS: IPRATROPIUM BROMIDE 0.5 MG/2.5 ML NEB SOLUTION NEB SCH ×4 (01:12→19:41)
[2019-07-06 05:49] VITALS: BP 149/64
[2019-07-06 05:56] LABS: GLUCOMETER DEV NAME(LOC) 5N.2; GLUCOSE,POINT OF CARE 159 MG/DL (70-110)
[2019-07-06 05:56] LABS: GLUCOMETER DEV NAME(LOC) 5N.2; GLUCOSE,POINT OF CARE 169 MG/DL (70-110)
[2019-07-06 05:57] LABS: GLUCOMETER DEV NAME(LOC) 5N.2; GLUCOSE,POINT OF CARE 298 MG/DL (70-110)
[2019-07-06 06:07] LABS: BASOPHILS % (AUTO) 0.2 % (0.0-2.0); EOSINOPHILS % (AUTO) 0.1 % (1.0-6.0); HEMATOCRIT 31.4 % (36-46); HEMOGLOBIN 10.2 g/dL (12.0-16.0); LYMPHOCYTES # (AUTO) 0.3 K/uL (1.0-4.8); LYMPHOCYTES % (AUTO) 4.6 % (22.0-44.0); MEAN CORPUSCULAR HEMOGLOBIN 28.5 pg (26.0-34.0); MEAN CORPUSCULAR HGB CONC 32.6 G/dL (31.0-37.0); MEAN CORPUSCULAR VOLUME 88 fL (80-100); MONOCYTES # (AUTO) 0.3 K/uL (0.1-1.0); MONOCYTES % (AUTO) 4.6 % (2.0-9.0); NEUTROPHILS # (AUTO) 6.7 K/uL (1.8-7.7); PLATELET COUNT (AUTO) 300 K/uL (150-450); RED BLOOD CELL COUNT(AUTO) 3.59 MIL/uL (4.00-5.20); RED CELL DISTRIBUTION WIDTH 14.2 % (11.5-14.5)
[2019-07-06] MEDS: MethylPREDNISolone SOD SUCC 40 MG/ML VIAL IVP SCH ×3 (06:09→23:42)
[2019-07-06 06:15] LABS: CALCIUM, TOTAL 9.3 mg/dL (8.8-10.5); CREATININE 1.02 mg/dL (0.60-1.30); POTASSIUM 5.2 mmol/L (3.5-5.1)
[2019-07-06] MEDS: INSULIN LISPRO 100 UNITS/ML SQ PRN ×4 (06:18→20:25)
[2019-07-06 06:22] LABS: NEUTROPHILS % (AUTO) 90.5 % (40.0-70.0)
[2019-07-06 07:26] VITALS: BP 167/75
[2019-07-06] MEDS: MULTIVITAMINS, THERAPEUTIC TABLET PO SCH (07:54)
[2019-07-06] MEDS: ASPIRIN 81 MG EC TABLET PO SCH (07:54)
[2019-07-06] MEDS: PANTOPRAZOLE SODIUM 40 MG DR TABLET PO SCH (07:55)
[2019-07-06] MEDS: ATORVASTATIN CALCIUM 20 MG TABLET PO SCH (07:55)
[2019-07-06] MEDS: AmLODIPine BESYLATE 5 MG TABLET PO SCH (07:55)
[2019-07-06] MEDS: SULFAMETHOX/TRIMETH DS 800-160 MG/TABLET PO SCH ×2 (07:55→20:24)
[2019-07-06] MEDS: MONTELUKAST SODIUM 10 MG TABLET PO SCH (07:55)
[2019-07-06] MEDS: HEPARIN SODIUM,PORCINE 5,000 UNITS/ML VIAL SQ SCH ×2 (07:56→20:22)
[2019-07-06] MEDS: BENZONATATE 100 MG CAPSULE PO SCH ×3 (07:59→23:42)
[2019-07-06] MEDS: DOCUSATE SODIUM 100 MG CAPSULE PO SCH ×2 (08:48→20:24)
[2019-07-06] MEDS: BUDESONIDE 0.5 MG/2 ML NEB SOLUTION NEB SCH ×2 (09:14→19:41)
[2019-07-06] MEDS: PROMETHAZINE HCL/CODEINE 6.25-10MG/5ML SYRUP UDCUP PO PRN ×2 (11:32→23:42)
[2019-07-06 11:46] LABS: GLUCOMETER DEV NAME(LOC) 5S.1; GLUCOSE,POINT OF CARE 160 MG/DL (70-110)
[2019-07-06 12:30] LABS: GLUCOMETER DEV NAME(LOC) 5N.1; GLUCOSE,POINT OF CARE 168 MG/DL (70-110)
[2019-07-06] MEDS: CefTRIAXone 1 GM/DEXTROSE 50 ML IV SCH (15:36)
[2019-07-06 15:56] VITALS: BP 149/76
[2019-07-06] MEDS: AZITHROMYCIN 500 MG/NS 250 ML IV SCH (16:28)
[2019-07-06 19:17] VITALS: BP 148/74
[2019-07-06 20:31] LABS: GLUCOMETER DEV NAME(LOC) 5S.1; GLUCOSE,POINT OF CARE 159 MG/DL (70-110)
[2019-07-06 20:35] LABS: GLUCOMETER DEV NAME(LOC) 5N.2; GLUCOSE,POINT OF CARE 162 MG/DL (70-110)
[2019-07-06 20:35] LABS: GLUCOMETER DEV NAME(LOC) 5N.1; GLUCOSE,POINT OF CARE 234 MG/DL (70-110)
[2019-07-06 23:25] VITALS: BP 135/76
[2019-07-06] MEDS: ALBUTEROL SULFATE 2.5 MG/0.5 ML NEB SOLUTION NEB PRN (23:54)
[2019-07-07] MEDS: IPRATROPIUM BROMIDE 0.5 MG/2.5 ML NEB SOLUTION NEB SCH ×3 (02:07→14:21)
[2019-07-07] MEDS: ALBUTEROL SULFATE 2.5 MG/0.5 ML NEB SOLUTION NEB SCH ×3 (02:07→14:21)
[2019-07-07 05:24] VITALS: BP 120/60
[2019-07-07 06:12] LABS: BASOPHILS % (AUTO) 0.1 % (0.0-2.0); EOSINOPHILS % (AUTO) 0 % (1.0-6.0); HEMOGLOBIN 10.3 g/dL (12.0-16.0); LYMPHOCYTES # (AUTO) 0.4 K/uL (1.0-4.8); LYMPHOCYTES % (AUTO) 4.1 % (22.0-44.0); MEAN CORPUSCULAR HEMOGLOBIN 28.1 pg (26.0-34.0); MEAN CORPUSCULAR HGB CONC 32.2 G/dL (31.0-37.0); MEAN CORPUSCULAR VOLUME 87 fL (80-100); MONOCYTES # (AUTO) 0.4 K/uL (0.1-1.0); MONOCYTES % (AUTO) 4.3 % (2.0-9.0); PLATELET COUNT (AUTO) 348 K/uL (150-450); RED BLOOD CELL COUNT(AUTO) 3.67 MIL/uL (4.00-5.20); RED CELL DISTRIBUTION WIDTH 14.8 % (11.5-14.5)
[2019-07-07] MEDS: INSULIN LISPRO 100 UNITS/ML SQ PRN ×2 (06:23→12:16)
[2019-07-07 06:24] LABS: NEUTROPHILS % (AUTO) 91.5 % (40.0-70.0)
[2019-07-07 06:25] LABS: CALCIUM, TOTAL 9.4 mg/dL (8.8-10.5); CREATININE 1.27 mg/dL (0.60-1.30); POTASSIUM 5.1 mmol/L (3.5-5.1)
[2019-07-07 07:26] VITALS: BP 154/78
[2019-07-07] MEDS: BUDESONIDE 0.5 MG/2 ML NEB SOLUTION NEB SCH (07:54)
[2019-07-07] MEDS: BENZONATATE 100 MG CAPSULE PO SCH ×2 (08:00→15:35)
[2019-07-07] MEDS: PANTOPRAZOLE SODIUM 40 MG DR TABLET PO SCH (08:30)
[2019-07-07] MEDS: SULFAMETHOX/TRIMETH DS 800-160 MG/TABLET PO SCH (08:30)
[2019-07-07] MEDS: MONTELUKAST SODIUM 10 MG TABLET PO SCH (08:30)
[2019-07-07] MEDS: ASPIRIN 81 MG EC TABLET PO SCH (08:30)
[2019-07-07] MEDS: AmLODIPine BESYLATE 5 MG TABLET PO SCH (08:31)
[2019-07-07] MEDS: HEPARIN SODIUM,PORCINE 5,000 UNITS/ML VIAL SQ SCH (08:31)
[2019-07-07] MEDS: ATORVASTATIN CALCIUM 20 MG TABLET PO SCH (08:31)
[2019-07-07] MEDS: MethylPREDNISolone SOD SUCC 40 MG/ML VIAL IVP SCH (08:32)
[2019-07-07] MEDS: DOCUSATE SODIUM 100 MG CAPSULE PO SCH (08:32)
[2019-07-07] MEDS: MULTIVITAMINS, THERAPEUTIC TABLET PO SCH (08:34)
[2019-07-07 09:16] LABS: GLUCOMETER DEV NAME(LOC) 5N.2; GLUCOSE,POINT OF CARE 233 MG/DL (70-110)
[2019-07-07 11:57] VITALS: BP 141/72
[2019-07-07] MEDS ORDERED: PredniSONE 20 MG TABLET PO SCH (13:15)
[2019-07-07] MEDS ORDERED: PRED10 PO (13:16)
[2019-07-07] MEDS ORDERED: PRED20 PO (13:16)
[2019-07-07] MEDS ORDERED: SULF1TAB42 PO ×2 (13:19→14:16)
[2019-07-07] MEDS ORDERED: PROM6.2521 PO (13:19)
[2019-07-07 17:06] LABS: GLUCOMETER DEV NAME(LOC) 5N.1; GLUCOSE,POINT OF CARE 156 MG/DL (70-110)
[2019-07-08 11:10] LABS: ORGANISM ID Not indicated.; S PNEUMO SOURCE Urine; STREP PNEUMONIAE AG URINE Negative (Negative); STREP.PNEUMO BODY FLUID CULT. Not Indicated
[2019-07-08 12:24] LABS: LEGIONELLA PNEUMO AG URINE Negative (Negative)
== END 2019-07-07 17:20 | disposition home or self-care (01) | DRG 871 ==
LOC: EMS 02:36 → 5S 12:12
PROVIDERS: ADMIT Internal Medicine; ATTEND Internal Medicine
PROC: 5A09357 Assistance with Respiratory Ventilation, Less than 24 Consecutive Hours, Continuous Positive Airway Pressure (ICD-10-PCS; principal; 2019-07-04)
PROC: 5A09357 Assistance with Respiratory Ventilation, Less than 24 Consecutive Hours, Continuous Positive Airway Pressure (ICD-10-PCS; 2019-07-05)
DX: A41.51 Sepsis due to Escherichia coli [E. coli] (principal); J96.21 Acute and chronic respiratory failure with hypoxia; J44.1 Chronic obstructive pulmonary disease with (acute) exacerbation; N39.0 Urinary tract infection, site not specified; E87.1 Hypo-osmolality and hyponatremia; Z16.12 Extended spectrum beta lactamase (ESBL) resistance; B96.20 Unspecified Escherichia coli [E. coli] as the cause of diseases classified elsewhere; I25.10 Atherosclerotic heart disease of native coronary artery without angina pectoris; E78.5 Hyperlipidemia, unspecified; D64.9 Anemia, unspecified; B96.89 Other specified bacterial agents as the cause of diseases classified elsewhere; E03.9 Hypothyroidism, unspecified; E11.51 Type 2 diabetes mellitus with diabetic peripheral angiopathy without gangrene; K21.9 Gastro-esophageal reflux disease without esophagitis; M85.80 Other specified disorders of bone density and structure, unspecified site; R65.20 Severe sepsis without septic shock; Z82.49 Family history of ischemic heart disease and other diseases of the circulatory system; Z83.3 Family history of diabetes mellitus; Z86.19 Personal history of other infectious and parasitic diseases; Z99.81 Dependence on supplemental oxygen; Z90.710 Acquired absence of both cervix and uterus; Z88.0 Allergy status to penicillin; Z87.891 Personal history of nicotine dependence; Z87.440 Personal history of urinary (tract) infections
CPT/HCPCS: 71250; 74177; 83036; 83605; 84145; 86738; 87040; 87086; 87449; 87804; 87899; 93005; 94640; 94644; 94645; 94660; 96365; 96366; 96368; 97161; 99291; J0131; J0456; J0696; J0744; J1644; J2270; J2405; J2920; J2930; J7030; J7050

== ENCOUNTER 2019-10-03 23:49 | Inpatient (IN) | payer OTHER ==
[~2019-10-03] VITALS: Ht 160 cm; Wt 61.6 kg
[~2019-10-03 23:49] MED LIST changes: +PRED20 PO; +PROM6.2521 PO; +SULF1TAB42 PO
[2019-10-04 00:44] LABS: BASOPHILS % (AUTO) 0.7 % (0.0-2.0); EOSINOPHILS % (AUTO) 1.8 % (1.0-6.0); HEMATOCRIT 36.4 % (36-46); HEMOGLOBIN 11.6 g/dL (12.0-16.0); LYMPHOCYTES # (AUTO) 0.8 K/uL (1.0-4.8); LYMPHOCYTES % (AUTO) 7.8 % (22.0-44.0); MEAN CORPUSCULAR HEMOGLOBIN 28.7 pg (26.0-34.0); MEAN CORPUSCULAR HGB CONC 31.9 G/dL (31.0-37.0); MEAN CORPUSCULAR VOLUME 90 fL (80-100); MONOCYTES # (AUTO) 0.6 K/uL (0.1-1.0); MONOCYTES % (AUTO) 5.7 % (2.0-9.0); NEUTROPHILS # (AUTO) 8.9 K/uL (1.8-7.7); PLATELET COUNT (AUTO) 222 K/uL (150-450); RED BLOOD CELL COUNT(AUTO) 4.04 MIL/uL (4.00-5.20); RED CELL DISTRIBUTION WIDTH 13.7 % (11.5-14.5)
[2019-10-04] MEDS ORDERED: MORPHINE SULFATE 2 MG/ML SYRINGE IVP ONE ×2 (00:45→04:00)
[2019-10-04] MEDS ORDERED: ONDANSETRON HCL 4 MG/2 ML VIAL IVP ONE (00:45)
[2019-10-04] MEDS ORDERED: SODIUM CHLORIDE 0.9% 1,000 ML IV ONE ×2 (00:45→11:00)
[2019-10-04 00:52] LABS: CALCIUM, TOTAL 8.7 mg/dL (8.8-10.5); CREATININE 0.96 mg/dL (0.60-1.30); POTASSIUM 4.8 mmol/L (3.5-5.1)
[2019-10-04 00:57] LABS: ALBUMIN 3.6 g/dL (3.4-5.0); BILIRUBIN,TOTAL 0.5 mg/dL (0.1-1.0); TOTAL PROTEIN, SERUM 6.7 g/dL (6.4-8.2)
[2019-10-04] MEDS ORDERED: IPRATROPIUM BROMIDE 0.5 MG/2.5 ML NEB SOLUTION NEB ONE (03:45)
[2019-10-04] MEDS ORDERED: ALBUTEROL SULFATE 2.5 MG/0.5 ML NEB SOLUTION NEB ONE (03:45)
[2019-10-04] MEDS ORDERED: 0.9% SODIUM CHLORIDE 10 ML SYRINGE IVP PRN ×2 (04:00→08:15)
[2019-10-04] MEDS ORDERED: ACETAMINOPHEN 325 MG TABLET PO PRN (04:00)
[2019-10-04] MEDS ORDERED: ONDANSETRON HCL 4 MG/2 ML VIAL IVP PRN ×2 (04:00→08:15)
[2019-10-04] MEDS ORDERED: MORPHINE SULFATE 4 MG/ML SYRINGE IVP ONE (04:15)
[2019-10-04] MEDS ORDERED: IPRATROPIUM BROMIDE 0.5 MG/2.5 ML NEB SOLUTION NEB SCH (07:00)
[2019-10-04] MEDS ORDERED: ALBUTEROL SULFATE 2.5 MG/0.5 ML NEB SOLUTION NEB SCH (07:00)
[2019-10-04] MEDS ORDERED: OXYGEN THERAPY IH SCH (08:00)
[2019-10-04] MEDS ORDERED: DEXTROSE 50%-WATER 25 GM/50 ML SYRINGE IVP PRN (08:15)
[2019-10-04] MEDS ORDERED: ALBUTEROL SULFATE 2.5 MG/0.5 ML NEB SOLUTION NEB PRN (08:15)
[2019-10-04] MEDS ORDERED: ZOLPIDEM TARTRATE 5 MG TABLET PO PRN (08:15)
[2019-10-04] MEDS ORDERED: IPRATROPIUM BROMIDE 0.5 MG/2.5 ML NEB SOLUTION NEB PRN (08:15)
[2019-10-04] MEDS: OXYGEN THERAPY IH SCH ×2 (08:20→21:07)
[2019-10-04 08:35] LABS: APPEARANCE,URINE CLEAR (CLEAR); BILIRUBIN,URINE NEGATIVE (NEGATIVE); GLUCOSE, URINE (UA) NEGATIVE (NEGATIVE); KETONES,URINE NEGATIVE (NEGATIVE); LEUKOCYTE ESTERASE ,URINE NEGATIVE (NEGATIVE); NITRATE,URINE NEGATIVE (NEGATIVE); OCCULT BLOOD,URINE NEGATIVE (NEGATIVE); PH,URINE 6.5 (5.0-8.0); PROTEIN,URINE POS 1+ (NEGATIVE)
[2019-10-04 08:48] LABS: BACTERIA,URINE None Seen /HPF (None Seen); RBC,URINE None Seen /HPF (0-2); WBC,URINE None Seen /HPF (0-5)
[2019-10-04] MEDS: ATORVASTATIN CALCIUM 20 MG TABLET PO SCH (08:53)
[2019-10-04] MEDS: MethylPREDNISolone SOD SUCC 40 MG/ML VIAL IVP SCH ×2 (08:53→21:05)
[2019-10-04] MEDS: MONTELUKAST SODIUM 10 MG TABLET PO SCH (08:53)
[2019-10-04] MEDS: AmLODIPine BESYLATE 5 MG TABLET PO SCH (08:54)
[2019-10-04] MEDS: PANTOPRAZOLE SODIUM 40 MG DR TABLET PO SCH (08:54)
[2019-10-04 09:24] LABS: GLUCOSE,POINT OF CARE 120 MG/DL (70-110)
[2019-10-04] MEDS: FLUTICASONE/VILANTEROL 200-25 MCG/INH INHALER [14] IH SCH (10:43)
[2019-10-04] MEDS: MORPHINE SULFATE 2 MG/ML SYRINGE IVP PRN ×2 (11:29→17:16)
[2019-10-04 11:43] LABS: BASOPHILS % (AUTO) 0.2 % (0.0-2.0); EOSINOPHILS % (AUTO) 0.3 % (1.0-6.0); HEMATOCRIT 37.1 % (36-46); HEMOGLOBIN 11.9 g/dL (12.0-16.0); LYMPHOCYTES # (AUTO) 0.2 K/uL (1.0-4.8); LYMPHOCYTES % (AUTO) 2.8 % (22.0-44.0); MEAN CORPUSCULAR HEMOGLOBIN 29.2 pg (26.0-34.0); MEAN CORPUSCULAR HGB CONC 32.1 G/dL (31.0-37.0); MEAN CORPUSCULAR VOLUME 91 fL (80-100); MONOCYTES # (AUTO) 0.1 K/uL (0.1-1.0); MONOCYTES % (AUTO) 1.1 % (2.0-9.0); NEUTROPHILS # (AUTO) 6.3 K/uL (1.8-7.7); PLATELET COUNT (AUTO) 193 K/uL (150-450); RED BLOOD CELL COUNT(AUTO) 4.09 MIL/uL (4.00-5.20); RED CELL DISTRIBUTION WIDTH 13.8 % (11.5-14.5)
[2019-10-04 11:59] LABS: NEUTROPHILS % (AUTO) 95.6 % (40.0-70.0)
[2019-10-04 12:31] LABS: ALANINE AMINOTRANSFERASE 50 U/L (12-78); ALBUMIN 3.4 g/dL (3.4-5.0); ALKALINE PHOSPHATASE 48 U/L (46-116); ANION GAP 3 mmol/L (8-16); ASPARTATE AMINOTRANSFERASE 63 U/L (15-37); BILIRUBIN,TOTAL 0.7 mg/dL (0.1-1.0); CALCIUM, TOTAL 8.2 mg/dL (8.8-10.5); CARBON DIOXIDE 33 mmol/L (22-29); CHLORIDE 102 mmol/L (98-107); CHOL/HDL RATIO 2.5 (3.9-5.7); CHOLESTEROL 143 mg/dL (131-200); FREE T4 (FREE THYROXINE) 1.03 ng/dL (0.76-1.46); GLUCOSE,RANDOM 125 mg/dL (70-110); HDL CHOLESTEROL 57 mg/dL (40-60); LDL CHOL (CALC.) 71 mg/dL (0-130); LIPASE 238 U/L (73-393); SODIUM SERUM 138 mmol/L (136-145); THYROID STIMULATING HORMONE 0.56 uIU/mL (0.36-3.74); TOTAL PROTEIN, SERUM 6.6 g/dL (6.4-8.2); TRIGLYCERIDES 73 mg/dL (15-150); UREA NITROGEN, BLOOD 25 mg/dL (7-18)
[2019-10-04 12:32] LABS: GLOMERULAR FILTR. RATE CALC > 60 mL/min (>60)
[2019-10-04 12:53] LABS: ABG BASE EXCESS 0.6 mmol/L (-2.0-3.0); ABG CARBOXYHEMOGLOBIN 1.2 % (0.0-1.5); ABG HCO3 23.9 mmol/L (22.0-26.0); ABG METHEMOGLOBIN 0.3 % (0.0-1.5); ABG OXYGEN CONTENT 16.8 mL/dL (15.0-23.0); ABG OXYGEN SATURATION 97.6 % (95.0-98.0); ABG OXYHEMOGLOBIN 96.1 % (94.0-100.0); ABG PH 7.238 (7.35-7.450); ABG TOTAL HEMOGLOBIN 12.3 G/dL (12.0-18.0); PO2, ARTERIAL BG 105.8 mmHg (71.0-79.0); SOURCE, BLOOD GAS ARTERIAL; TEMPERATURE, FAHRENHEIT, BG 98.6 FAHREN (96.0-98.6)
[2019-10-04 14:34] LABS: ABG PCO2 67 mmHg (35-45)
[2019-10-04 14:35] LABS: O2 DEVICE,BLOOD GAS VENTI MASK (ROOM AIR); SITE, BLOOD GAS RT RADIAL
[2019-10-04] MEDS: ALBUTEROL SULFATE 2.5 MG/0.5 ML NEB SOLUTION NEB SCH ×2 (14:44→20:28)
[2019-10-04] MEDS: IPRATROPIUM BROMIDE 0.5 MG/2.5 ML NEB SOLUTION NEB SCH ×2 (14:45→20:28)
[2019-10-04 17:11] VITALS: BP 157/74
[2019-10-04 19:55] VITALS: BP 139/80
[2019-10-04] MEDS: SODIUM CHLORIDE 0.9% 1,000 ML IV SCH (21:06)
[2019-10-04 23:16] LABS: GLUCOMETER DEV NAME(LOC) 5S.1; GLUCOSE,POINT OF CARE 97 MG/DL (70-110)
[2019-10-04 23:56] VITALS: BP 158/72
[2019-10-05] MEDS: ALBUTEROL SULFATE 2.5 MG/0.5 ML NEB SOLUTION NEB SCH ×4 (01:12→19:22)
[2019-10-05] MEDS: IPRATROPIUM BROMIDE 0.5 MG/2.5 ML NEB SOLUTION NEB SCH ×4 (01:12→19:23)
[2019-10-05] MEDS: MORPHINE SULFATE 2 MG/ML SYRINGE IVP PRN (01:34)
[2019-10-05 06:13] VITALS: BP 149/61
[2019-10-05 06:25] LABS: BASOPHILS % (AUTO) 0.4 % (0.0-2.0); EOSINOPHILS % (AUTO) 0 % (1.0-6.0); HEMATOCRIT 34.9 % (36-46); HEMOGLOBIN 11.3 g/dL (12.0-16.0); LYMPHOCYTES # (AUTO) 0.2 K/uL (1.0-4.8); LYMPHOCYTES % (AUTO) 5.9 % (22.0-44.0); MEAN CORPUSCULAR HEMOGLOBIN 29.3 pg (26.0-34.0); MEAN CORPUSCULAR HGB CONC 32.4 G/dL (31.0-37.0); MEAN CORPUSCULAR VOLUME 91 fL (80-100); MONOCYTES # (AUTO) 0.1 K/uL (0.1-1.0); MONOCYTES % (AUTO) 3.2 % (2.0-9.0); NEUTROPHILS # (AUTO) 3.4 K/uL (1.8-7.7); PLATELET COUNT (AUTO) 194 K/uL (150-450); RED BLOOD CELL COUNT(AUTO) 3.86 MIL/uL (4.00-5.20); RED CELL DISTRIBUTION WIDTH 13.7 % (11.5-14.5)
[2019-10-05 06:40] LABS: NEUTROPHILS % (AUTO) 90.5 % (40.0-70.0)
[2019-10-05 06:41] LABS: ALANINE AMINOTRANSFERASE 43 U/L (12-78); ALBUMIN 3.1 g/dL (3.4-5.0); ALKALINE PHOSPHATASE 44 U/L (46-116); ANION GAP 4 mmol/L (8-16); ASPARTATE AMINOTRANSFERASE 43 U/L (15-37); BILIRUBIN,TOTAL 0.6 mg/dL (0.1-1.0); CALCIUM, TOTAL 8.2 mg/dL (8.8-10.5); CARBON DIOXIDE 36 mmol/L (22-29); CHLORIDE 104 mmol/L (98-107); CREATININE 0.74 mg/dL (0.60-1.30); GLUCOSE,RANDOM 118 mg/dL (70-110); LIPASE 106 U/L (73-393); POTASSIUM 4.6 mmol/L (3.5-5.1); SODIUM SERUM 144 mmol/L (136-145); TOTAL PROTEIN, SERUM 6.2 g/dL (6.4-8.2); UREA NITROGEN, BLOOD 23 mg/dL (7-18)
[2019-10-05 06:42] LABS: GLOMERULAR FILTR. RATE CALC > 60 mL/min (>60)
[2019-10-05 07:02] LABS: GLUCOMETER DEV NAME(LOC) 5S.1; GLUCOSE,POINT OF CARE 105 MG/DL (70-110)
[2019-10-05 07:40] VITALS: BP 157/62
[2019-10-05] MEDS: MethylPREDNISolone SOD SUCC 40 MG/ML VIAL IVP SCH ×2 (08:33→18:51)
[2019-10-05] MEDS: PANTOPRAZOLE SODIUM 40 MG DR TABLET PO SCH (08:33)
[2019-10-05] MEDS: AmLODIPine BESYLATE 5 MG TABLET PO SCH (08:33)
[2019-10-05] MEDS: ATORVASTATIN CALCIUM 20 MG TABLET PO SCH (08:33)
[2019-10-05] MEDS: MONTELUKAST SODIUM 10 MG TABLET PO SCH (08:33)
[2019-10-05] MEDS: OXYGEN THERAPY IH SCH ×2 (10:56→20:00)
[2019-10-05 11:39] VITALS: BP 159/79
[2019-10-05] MEDS: FLUTICASONE/VILANTEROL 200-25 MCG/INH INHALER [14] IH SCH (11:43)
[2019-10-05] MEDS: SODIUM CHLORIDE 0.9% 1,000 ML IV SCH (11:49)
[2019-10-05] MEDS: ACETAMINOPHEN 325 MG TABLET PO PRN (12:32)
[2019-10-05 13:25] LABS: GLUCOMETER DEV NAME(LOC) 5S.1; GLUCOSE,POINT OF CARE 106 MG/DL (70-110)
[2019-10-05 14:54] LABS: ABG A-A DIFF O2 96.5 mmHg (10-20.0); ABG BASE EXCESS 5.9 mmol/L (-2.0-3.0); ABG CARBOXYHEMOGLOBIN 0.9 % (0.0-1.5); ABG HCO3 27.8 mmol/L (22.0-26.0); ABG METHEMOGLOBIN 0.3 % (0.0-1.5); ABG OXYGEN CONTENT 15.3 mL/dL (15.0-23.0); ABG OXYGEN SATURATION 92.9 % (95.0-98.0); ABG OXYHEMOGLOBIN 91.8 % (94.0-100.0); ABG PH 7.247 (7.35-7.450); ABG TOTAL HEMOGLOBIN 11.8 G/dL (12.0-18.0); PO2, ARTERIAL BG 69.8 mmHg (71.0-79.0); SOURCE, BLOOD GAS ARTERIAL; TEMPERATURE, FAHRENHEIT, BG 98.6 FAHREN (96.0-98.6)
[2019-10-05 14:55] LABS: ABG PCO2 78 mmHg (35-45); O2 DEVICE,BLOOD GAS CANNULA (ROOM AIR); SITE, BLOOD GAS RT RADIAL
[2019-10-05 15:24] VITALS: BP 138/64
[2019-10-05 17:03] LABS: ABG A-A DIFF O2 56.6 mmHg (10-20.0); ABG BASE EXCESS 3.7 mmol/L (-2.0-3.0); ABG CARBOXYHEMOGLOBIN 0.8 % (0.0-1.5); ABG HCO3 26.3 mmol/L (22.0-26.0); ABG METHEMOGLOBIN 0.3 % (0.0-1.5); ABG OXYGEN CONTENT 15.3 mL/dL (15.0-23.0); ABG OXYGEN SATURATION 93.9 % (95.0-98.0); ABG OXYHEMOGLOBIN 92.9 % (94.0-100.0); ABG PH 7.252 (7.35-7.450); ABG TOTAL HEMOGLOBIN 11.7 G/dL (12.0-18.0); PO2, ARTERIAL BG 72.9 mmHg (71.0-79.0); SOURCE, BLOOD GAS ARTERIAL; TEMPERATURE, FAHRENHEIT, BG 98.6 FAHREN (96.0-98.6)
[2019-10-05 17:04] LABS: ABG PCO2 72 mmHg (35-45); O2 DEVICE,BLOOD GAS BIPAP (ROOM AIR); SITE, BLOOD GAS RT RADIAL
[2019-10-05 17:05] LABS: INSPIRATORY TIME, BG 1 SEC
[2019-10-05 20:25] VITALS: BP 157/75
[2019-10-05 21:12] LABS: GLUCOMETER DEV NAME(LOC) 5S.2A; GLUCOSE,POINT OF CARE 116 MG/DL (70-110)
[2019-10-05 23:43] VITALS: BP 132/66
[2019-10-06] MEDS: MethylPREDNISolone SOD SUCC 40 MG/ML VIAL IVP SCH ×4 (00:07→18:34)
[2019-10-06] MEDS: ALBUTEROL SULFATE 2.5 MG/0.5 ML NEB SOLUTION NEB SCH ×4 (02:31→21:06)
[2019-10-06] MEDS: IPRATROPIUM BROMIDE 0.5 MG/2.5 ML NEB SOLUTION NEB SCH ×4 (02:32→21:06)
[2019-10-06 04:24] VITALS: BP 150/84
[2019-10-06 06:51] LABS: BASOPHILS % (AUTO) 0.1 % (0.0-2.0); EOSINOPHILS % (AUTO) 0 % (1.0-6.0); HEMATOCRIT 37.2 % (36-46); LYMPHOCYTES # (AUTO) 0.3 K/uL (1.0-4.8); LYMPHOCYTES % (AUTO) 7.4 % (22.0-44.0); MEAN CORPUSCULAR HEMOGLOBIN 28.9 pg (26.0-34.0); MEAN CORPUSCULAR HGB CONC 32.1 G/dL (31.0-37.0); MEAN CORPUSCULAR VOLUME 90 fL (80-100); MONOCYTES # (AUTO) 0.1 K/uL (0.1-1.0); MONOCYTES % (AUTO) 3.4 % (2.0-9.0); NEUTROPHILS # (AUTO) 3.5 K/uL (1.8-7.7); PLATELET COUNT (AUTO) 219 K/uL (150-450); RED BLOOD CELL COUNT(AUTO) 4.14 MIL/uL (4.00-5.20); RED CELL DISTRIBUTION WIDTH 13.7 % (11.5-14.5)
[2019-10-06 06:56] LABS: NEUTROPHILS % (AUTO) 89.1 % (40.0-70.0)
[2019-10-06 07:22] LABS: ALANINE AMINOTRANSFERASE 41 U/L (12-78); ALBUMIN 3.4 g/dL (3.4-5.0); ALKALINE PHOSPHATASE 46 U/L (46-116); ANION GAP 5 mmol/L (8-16); ASPARTATE AMINOTRANSFERASE 27 U/L (15-37); BILIRUBIN,TOTAL 0.5 mg/dL (0.1-1.0); CALCIUM, TOTAL 8.3 mg/dL (8.8-10.5); CARBON DIOXIDE 33 mmol/L (22-29); CHLORIDE 101 mmol/L (98-107); CREATININE 0.71 mg/dL (0.60-1.30); GLUCOSE,RANDOM 129 mg/dL (70-110); POTASSIUM 4.2 mmol/L (3.5-5.1); SODIUM SERUM 139 mmol/L (136-145); TOTAL PROTEIN, SERUM 6.5 g/dL (6.4-8.2); UREA NITROGEN, BLOOD 21 mg/dL (7-18)
[2019-10-06 07:25] LABS: GLOMERULAR FILTR. RATE CALC > 60 mL/min (>60)
[2019-10-06 07:58] VITALS: BP 176/79
[2019-10-06] MEDS: PANTOPRAZOLE SODIUM 40 MG DR TABLET PO SCH (08:58)
[2019-10-06] MEDS: AmLODIPine BESYLATE 5 MG TABLET PO SCH (08:58)
[2019-10-06] MEDS: MONTELUKAST SODIUM 10 MG TABLET PO SCH (08:59)
[2019-10-06] MEDS: ATORVASTATIN CALCIUM 20 MG TABLET PO SCH (08:59)
[2019-10-06 11:01] VITALS: BP 157/67
[2019-10-06] MEDS: OXYGEN THERAPY IH SCH ×2 (11:02→20:56)
[2019-10-06 11:51] LABS: GLUCOMETER DEV NAME(LOC) 5S.1; GLUCOSE,POINT OF CARE 119 MG/DL (70-110)
[2019-10-06 11:52] LABS: GLUCOMETER DEV NAME(LOC) 5S.1; GLUCOSE,POINT OF CARE 115 MG/DL (70-110)
[2019-10-06 11:52] LABS: GLUCOMETER DEV NAME(LOC) 5S.1; GLUCOSE,POINT OF CARE 127 MG/DL (70-110)
[2019-10-06] MEDS: FLUTICASONE/VILANTEROL 200-25 MCG/INH INHALER [14] IH SCH (13:04)
[2019-10-06 15:31] LABS: GLUCOMETER DEV NAME(LOC) 5S.1; GLUCOSE,POINT OF CARE 127 MG/DL (70-110)
[2019-10-06 15:49] VITALS: BP 148/76
[2019-10-06 19:31] LABS: C.DIFF GDH ANTIGEN, Stool Negative (Negative); C.DIFF TOXINS A&B, Stool Negative (Negative)
[2019-10-06 19:32] VITALS: BP 150/74
[2019-10-06] MEDS: ACETAMINOPHEN 325 MG TABLET PO PRN (20:56)
[2019-10-06] MEDS: INSULIN LISPRO 100 UNITS/ML SQ PRN (21:06)
[2019-10-07 00:40] VITALS: BP 142/74
[2019-10-07] MEDS: MethylPREDNISolone SOD SUCC 40 MG/ML VIAL IVP SCH ×3 (00:47→12:48)
[2019-10-07] MEDS: IPRATROPIUM BROMIDE 0.5 MG/2.5 ML NEB SOLUTION NEB SCH ×3 (03:01→14:59)
[2019-10-07] MEDS: ALBUTEROL SULFATE 2.5 MG/0.5 ML NEB SOLUTION NEB SCH ×3 (03:01→14:58)
[2019-10-07 05:41] VITALS: BP 158/78
[2019-10-07] MEDS: INSULIN LISPRO 100 UNITS/ML SQ PRN (06:22)
[2019-10-07] MEDS: ATORVASTATIN CALCIUM 20 MG TABLET PO SCH (08:22)
[2019-10-07] MEDS: FLUTICASONE/VILANTEROL 200-25 MCG/INH INHALER [14] IH SCH (08:22)
[2019-10-07] MEDS: AmLODIPine BESYLATE 5 MG TABLET PO SCH (08:22)
[2019-10-07] MEDS: MONTELUKAST SODIUM 10 MG TABLET PO SCH (08:22)
[2019-10-07] MEDS: PANTOPRAZOLE SODIUM 40 MG DR TABLET PO SCH (08:23)
[2019-10-07] MEDS: OXYGEN THERAPY IH SCH (08:31)
[2019-10-07 10:15] LABS: GLUCOMETER DEV NAME(LOC) 5S.1; GLUCOSE,POINT OF CARE 148 MG/DL (70-110)
[2019-10-07 10:15] LABS: GLUCOMETER DEV NAME(LOC) 5S.1; GLUCOSE,POINT OF CARE 152 MG/DL (70-110)
[2019-10-07 10:15] LABS: GLUCOMETER DEV NAME(LOC) 5S.1; GLUCOSE,POINT OF CARE 143 MG/DL (70-110)
[2019-10-07] MEDS ORDERED: PRED20TA3 PO (10:24)
[2019-10-07] MEDS ORDERED: PANT40TA25 PO (10:24)
[2019-10-07] MEDS ORDERED: PRED5SOL PO (10:24)
[2019-10-07] MEDS ORDERED: PRED10TA3 PO (10:24)
[2019-10-07 11:31] VITALS: BP 160/87
[2019-10-07 15:19] VITALS: BP 153/74
[2019-10-09 02:16] LABS: GLUCOMETER DEV NAME(LOC) 5S.1; GLUCOSE,POINT OF CARE 136 MG/DL (70-110)
== END 2019-10-07 16:55 | disposition home or self-care (01) | DRG 189 ==
LOC: EMS 23:50 → 5N 10-04 15:29
PROVIDERS: ADMIT Internal Medicine; ATTEND Internal Medicine
PROC: 5A09357 Assistance with Respiratory Ventilation, Less than 24 Consecutive Hours, Continuous Positive Airway Pressure (ICD-10-PCS; principal; 2019-10-05)
PROC: 5A09357 Assistance with Respiratory Ventilation, Less than 24 Consecutive Hours, Continuous Positive Airway Pressure (ICD-10-PCS; 2019-10-06)
DX: J96.21 Acute and chronic respiratory failure with hypoxia (principal); J44.1 Chronic obstructive pulmonary disease with (acute) exacerbation; M19.90 Unspecified osteoarthritis, unspecified site; E11.9 Type 2 diabetes mellitus without complications; K21.9 Gastro-esophageal reflux disease without esophagitis; I10 Essential (primary) hypertension; E05.90 Thyrotoxicosis, unspecified without thyrotoxic crisis or storm; K44.9 Diaphragmatic hernia without obstruction or gangrene; E11.51 Type 2 diabetes mellitus with diabetic peripheral angiopathy without gangrene; M85.80 Other specified disorders of bone density and structure, unspecified site; Z79.52 Long term (current) use of systemic steroids; Z82.49 Family history of ischemic heart disease and other diseases of the circulatory system; Z99.81 Dependence on supplemental oxygen; Z90.710 Acquired absence of both cervix and uterus; Z90.49 Acquired absence of other specified parts of digestive tract; Z87.891 Personal history of nicotine dependence; Z83.3 Family history of diabetes mellitus
CPT/HCPCS: 36600; 74176; 76700; 82805; 84145; 84439; 84443; 87045; 87206; 87324; 87449; 93005; 93306; 93970; 94640; 94660; 96361; 96374; 96375; J2270; J2405; J2920; J7030

== ENCOUNTER 2019-10-15 17:24 | Inpatient (IN) | payer OTHER ==
[~2019-10-15] VITALS: Ht 152.4 cm; Wt 62.5 kg
[~2019-10-15 17:24] MED LIST changes: +PANT40TA25 PO; -PRED10 PO; +PRED10TA3 PO; -PRED20 PO; +PRED20TA3 PO; +PRED5SOL PO; -SULF1TAB42 PO
[2019-10-15] MEDS ORDERED: MethylPREDNISolone SOD SUCC 125 MG/2 ML VIAL IVP ONE (17:45)
[2019-10-15] MEDS ORDERED: IPRATROPIUM BROMIDE 0.5 MG/2.5 ML NEB SOLUTION NEB ONE (17:45)
[2019-10-15] MEDS ORDERED: ALBUTEROL SULFATE 2.5 MG/0.5 ML NEB SOLUTION NEB ONE ×2 (17:45→18:30)
[2019-10-15 18:21] LABS: HEMATOCRIT 37.1 % (36-46); HEMOGLOBIN 12.1 g/dL (12.0-16.0); MEAN CORPUSCULAR HEMOGLOBIN 28.9 pg (26.0-34.0); MEAN CORPUSCULAR HGB CONC 32.6 G/dL (31.0-37.0); MEAN CORPUSCULAR VOLUME 89 fL (80-100); PLATELET COUNT (AUTO) 284 K/uL (150-450); RED BLOOD CELL COUNT(AUTO) 4.19 MIL/uL (4.00-5.20); RED CELL DISTRIBUTION WIDTH 13.7 % (11.5-14.5)
[2019-10-15] MEDS ORDERED: FUROSEMIDE 40 MG/4 ML VIAL IVP ONE (18:30)
[2019-10-15 18:33] LABS: CALCIUM, TOTAL 8.6 mg/dL (8.8-10.5); CREATININE 0.9 mg/dL (0.60-1.30); PROTHROMBIN TIME 9.8 SEC (9.4-11.6)
[2019-10-15 18:39] LABS: BILIRUBIN,TOTAL 0.4 mg/dL (0.1-1.0); TOTAL PROTEIN, SERUM 6.7 g/dL (6.4-8.2)
[2019-10-15 19:02] LABS: APPEARANCE,URINE CLEAR (CLEAR); BILIRUBIN,URINE NEGATIVE (NEGATIVE); GLUCOSE, URINE (UA) NEGATIVE (NEGATIVE); KETONES,URINE NEGATIVE (NEGATIVE); LEUKOCYTE ESTERASE ,URINE NEGATIVE (NEGATIVE); NITRATE,URINE NEGATIVE (NEGATIVE); OCCULT BLOOD,URINE NEGATIVE (NEGATIVE); PH,URINE 6.5 (5.0-8.0); PROTEIN,URINE SEE CONFIRM (NEGATIVE)
[2019-10-15 19:12] LABS: SULFOSALICYLIC ACID,URINE 3+ (Negative)
[2019-10-15 19:14] LABS: BACTERIA,URINE None Seen /HPF (None Seen); RBC,URINE None Seen /HPF (0-2); SQUAMOUS EPITHELIAL CELL,UR Rare /LPF (None Seen); WBC,URINE 0-2 /HPF (0-5)
[2019-10-15 19:32] LABS: BAND NEUTROPHILS % (MANUAL) 10 % (0-5); BASOPHILS % (MANUAL) 1 % (0-2); EOSINOPHILS % (MANUAL) 1 % (1-6); LYMPHOCYTES % (MANUAL) 4 % (22-44); MONOCYTES % (MANUAL) 3 % (2-9); SEGMENTED NEUTROPHILS % 81 % (40-70)
[2019-10-15 20:20] LABS: INFLUENZA TYPE A NEGATIVE FOR TYPE A (NEGATIVE); INFLUENZA TYPE B NEGATIVE FOR TYPE B (NEGATIVE)
[2019-10-15] MEDS ORDERED: ACETAMINOPHEN 325 MG TABLET PO PRN (21:00)
[2019-10-15] MEDS ORDERED: DEXTROSE 50%-WATER 25 GM/50 ML SYRINGE IVP PRN (21:00)
[2019-10-15] MEDS: FAMOTIDINE 20 MG TABLET PO SCH (21:00)
[2019-10-15] MEDS ORDERED: MAGNESIUM HYDROXIDE SUSPENSION 30 ML UDCUP PO PRN (21:00)
[2019-10-15] MEDS: DOCUSATE SODIUM 100 MG CAPSULE PO SCH (21:00)
[2019-10-16] MEDS: MethylPREDNISolone SOD SUCC 125 MG/2 ML VIAL IVP SCH ×5 (00:19→23:37)
[2019-10-16 08:41] LABS: GLUCOSE,POINT OF CARE 158 MG/DL (70-110)
[2019-10-16] MEDS ORDERED: AmLODIPine BESYLATE 5 MG TABLET PO SCH (09:30)
[2019-10-16] MEDS: ALBUTEROL SULFATE 2.5 MG/0.5 ML NEB SOLUTION NEB PRN ×3 (09:37→20:12)
[2019-10-16] MEDS: IPRATROPIUM BROMIDE 0.5 MG/2.5 ML NEB SOLUTION NEB PRN ×3 (09:37→20:12)
[2019-10-16 09:42] VITALS: BP 156/67
[2019-10-16] MEDS: MULTIVITAMINS WITH MINERALS, THERAPEUTIC TABLET PO SCH (09:57)
[2019-10-16] MEDS: DOCUSATE SODIUM 100 MG CAPSULE PO SCH ×2 (09:57→21:05)
[2019-10-16] MEDS: FAMOTIDINE 20 MG TABLET PO SCH ×2 (09:57→21:05)
[2019-10-16] MEDS: HEPARIN SODIUM,PORCINE 5,000 UNITS/ML VIAL SQ SCH ×3 (09:57→23:38)
[2019-10-16] MEDS: NYSTATIN 500,000 UNITS/5 ML SUSPENSION UDCUP PO SCH ×3 (12:07→23:38)
[2019-10-16] MEDS: INSULIN LISPRO 100 UNITS/ML SQ PRN ×3 (12:20→21:15)
[2019-10-16 12:41] LABS: GLUCOMETER DEV NAME(LOC) 5S.1; GLUCOSE,POINT OF CARE 217 MG/DL (70-110)
[2019-10-16 13:21] VITALS: BP 147/69
[2019-10-16 16:22] VITALS: BP 119/62
[2019-10-16 19:13] VITALS: BP 161/63
[2019-10-16 19:30] LABS: GLUCOMETER DEV NAME(LOC) 5S.1; GLUCOSE,POINT OF CARE 215 MG/DL (70-110)
[2019-10-16 19:50] VITALS: BP 129/67
[2019-10-16] MEDS ORDERED: IPRATROPIUM BROMIDE 0.5 MG/2.5 ML NEB SOLUTION NEB ONE (20:07)
[2019-10-16] MEDS ORDERED: ALBUTEROL SULFATE 2.5 MG/0.5 ML NEB SOLUTION NEB ONE (20:07)
[2019-10-16] MEDS: AmLODIPine BESYLATE 5 MG TABLET PO SCH (21:05)
[2019-10-16] MEDS: MONTELUKAST SODIUM 10 MG TABLET PO SCH (22:12)
[2019-10-17] MEDS: ALBUTEROL SULFATE 2.5 MG/0.5 ML NEB SOLUTION NEB PRN ×5 (00:36→19:08)
[2019-10-17] MEDS: IPRATROPIUM BROMIDE 0.5 MG/2.5 ML NEB SOLUTION NEB PRN ×5 (00:36→19:08)
[2019-10-17 00:49] VITALS: BP 142/65
[2019-10-17 04:33] LABS: GLUCOMETER DEV NAME(LOC) 6N.2; GLUCOSE,POINT OF CARE 291 MG/DL (70-110)
[2019-10-17] MEDS: MethylPREDNISolone SOD SUCC 125 MG/2 ML VIAL IVP SCH ×2 (05:27→12:18)
[2019-10-17] MEDS: INSULIN LISPRO 100 UNITS/ML SQ PRN ×4 (05:39→20:44)
[2019-10-17 05:45] VITALS: BP 146/63
[2019-10-17 06:21] LABS: GLUCOMETER DEV NAME(LOC) 4E.2; GLUCOSE,POINT OF CARE 290 MG/DL (70-110)
[2019-10-17 08:13] VITALS: BP 129/64
[2019-10-17] MEDS: MULTIVITAMINS WITH MINERALS, THERAPEUTIC TABLET PO SCH (08:30)
[2019-10-17] MEDS: DOCUSATE SODIUM 100 MG CAPSULE PO SCH ×2 (08:31→20:34)
[2019-10-17] MEDS: AmLODIPine BESYLATE 5 MG TABLET PO SCH ×2 (08:31→20:34)
[2019-10-17] MEDS: FAMOTIDINE 20 MG TABLET PO SCH ×2 (08:33→20:34)
[2019-10-17] MEDS: NYSTATIN 500,000 UNITS/5 ML SUSPENSION UDCUP PO SCH ×3 (08:35→23:53)
[2019-10-17] MEDS: HEPARIN SODIUM,PORCINE 5,000 UNITS/ML VIAL SQ SCH ×3 (08:37→23:53)
[2019-10-17 11:53] VITALS: BP 136/75
[2019-10-17 15:42] VITALS: BP 140/70
[2019-10-17 16:18] LABS: GLUCOMETER DEV NAME(LOC) 6N.2; GLUCOSE,POINT OF CARE 181 MG/DL (70-110)
[2019-10-17] MEDS: MethylPREDNISolone SOD SUCC 40 MG/ML VIAL IVP SCH ×2 (17:25→23:53)
[2019-10-17 17:49] LABS: GLUCOMETER DEV NAME(LOC) 4E.2; GLUCOSE,POINT OF CARE 197 MG/DL (70-110)
[2019-10-17 20:00] VITALS: BP 138/55
[2019-10-17] MEDS: MONTELUKAST SODIUM 10 MG TABLET PO SCH (20:34)
[2019-10-17 21:42] LABS: GLUCOMETER DEV NAME(LOC) 4E.2; GLUCOSE,POINT OF CARE 290 MG/DL (70-110)
[2019-10-18 00:15] VITALS: BP 149/68
[2019-10-18 05:15] VITALS: BP 159/77
[2019-10-18] MEDS: ALBUTEROL SULFATE 2.5 MG/0.5 ML NEB SOLUTION NEB PRN ×2 (05:30→13:40)
[2019-10-18] MEDS: IPRATROPIUM BROMIDE 0.5 MG/2.5 ML NEB SOLUTION NEB PRN ×2 (05:30→13:40)
[2019-10-18] MEDS: MethylPREDNISolone SOD SUCC 40 MG/ML VIAL IVP SCH ×2 (05:54→12:01)
[2019-10-18] MEDS: INSULIN LISPRO 100 UNITS/ML SQ PRN ×2 (05:55→12:06)
[2019-10-18] MEDS: HydrALAZINE HCL 25 MG TABLET PO PRN ×2 (05:56→12:01)
[2019-10-18 08:07] VITALS: BP 148/59
[2019-10-18] MEDS: NYSTATIN 500,000 UNITS/5 ML SUSPENSION UDCUP PO SCH (08:15)
[2019-10-18] MEDS: DOCUSATE SODIUM 100 MG CAPSULE PO SCH (08:16)
[2019-10-18] MEDS: AmLODIPine BESYLATE 5 MG TABLET PO SCH (08:16)
[2019-10-18] MEDS: HEPARIN SODIUM,PORCINE 5,000 UNITS/ML VIAL SQ SCH (08:16)
[2019-10-18] MEDS: FAMOTIDINE 20 MG TABLET PO SCH (08:17)
[2019-10-18] MEDS: MULTIVITAMINS WITH MINERALS, THERAPEUTIC TABLET PO SCH (08:17)
[2019-10-18 10:44] LABS: GLUCOMETER DEV NAME(LOC) 6N.2; GLUCOSE,POINT OF CARE 183 MG/DL (70-110)
[2019-10-18 11:48] VITALS: BP 158/69
[2019-10-19 05:29] LABS: GLUCOMETER DEV NAME(LOC) 6N.2; GLUCOSE,POINT OF CARE 208 MG/DL (70-110)
== END 2019-10-18 14:30 | disposition home or self-care (01) | DRG 191 ==
LOC: EMS 17:30 → 5N 10-16 08:11 → 4E 10-16 18:50
PROVIDERS: ADMIT Internal Medicine; ATTEND Internal Medicine
DX: J44.1 Chronic obstructive pulmonary disease with (acute) exacerbation (principal); J96.11 Chronic respiratory failure with hypoxia; E44.0 Moderate protein-calorie malnutrition; B37.0 Candidal stomatitis; I50.32 Chronic diastolic (congestive) heart failure; J45.901 Unspecified asthma with (acute) exacerbation; I25.10 Atherosclerotic heart disease of native coronary artery without angina pectoris; I11.0 Hypertensive heart disease with heart failure; I73.9 Peripheral vascular disease, unspecified; M85.80 Other specified disorders of bone density and structure, unspecified site; Z82.49 Family history of ischemic heart disease and other diseases of the circulatory system; Z99.81 Dependence on supplemental oxygen; Z90.710 Acquired absence of both cervix and uterus; Z87.891 Personal history of nicotine dependence; Z83.3 Family history of diabetes mellitus; Z79.899 Other long term (current) drug therapy; K21.9 Gastro-esophageal reflux disease without esophagitis; Z68.26 Body mass index [BMI] 26.0-26.9, adult
CPT/HCPCS: 87081; 87804; 93005; 94640; 96374; 96375; G0378; J1644; J1940; J2920; J2930